=== PATIENT | male | born 1945 | race Caucasian/White ===

== ENCOUNTER 2018-03-12 21:37 | Emergency (ER) | payer MEDICARE, MEDICAID ==
[~2018-03-12] VITALS: Ht 185.4 cm; Wt 93.0 kg
[~2018-03-12 21:37] MED LIST: ASPI-84; AZIT250T PO; CLOP75TA; CLOP75TA28; DICL100G18; ENAL10TA; ISM60TCR; METO-387; MTP100TCR; RANO500T3; SIMV80TA3
--- OUTSIDE RECORDS SUMMARY | 2018-03-12 21:43 | XMS REPORT ---
Author Author REA Hanna [facility] Address Unknown Care Team Providers Care Logistics Assistant Name Role Phone REA Hanna Unavailable PROBLEMS Unknown Problems ALLERGIES Substance Reaction Event Type Date Status Iodine Unknown Non Drug Allergy Oct, Active SOCIAL HISTORY Never Assessed PLAN OF CARE Activity Details Follow Up prn Reason:as needed VITAL SIGNS Blood pressure systolic 177 mmHg 2016-11-22 Blood pressure diastolic 83 mmHg 2016-11-22 MEDICATIONS Medication Instructions Dosage Frequency Start Date End Date Duration Status Isosorbide Dinitrate 40 MG Orally Twice a day 1 tablet 12h Active Clopidogrel Bisulfate 75 MG Orally Once a day 1 tablet 24h Active Metoprolol Succinate Active Ranexa 500 MG Orally Twice a day 1 tablet 12h Active RESULTS No Results PROCEDURES Procedure Date Ordered Result Body Site LTD ORAL EVALUATION - PROBLEM FOCUS Nov 22, 2016 PANORAMIC FILM SEE ALSO CODE 47696 Nov 22, 2016 IMMUNIZATIONS No Known Immunizations MEDICAL (GENERAL) HISTORY Type Description Date Medical History pt is takin exalapril 10 mg 1 daily Medical History high blood pressure Medical History heart attack 2010 Medical History stroke Medical History blood thinners Medical History back trouble Surgical History heart attack 2010 Hospitalization History heart attack 2010
--- OUTSIDE RECORDS SUMMARY | 2018-03-12 21:43 | XMS REPORT | Continuity of Care Document ---
Author Author [facility] Organization [facility] Address Unknown Phone Unavailable Allergies Active Description Code Type Severity Reaction Onset Reported/Identified Relationship to Patient Clinical Status Yes Iodinated Contrast Media - IV Dye [id number] Drug Allergy Unknown N/A 01/20 Yes Iodinated Contrast Media - Oral and [id number] Drug Allergy Unknown N/A Medications There is no data. Problems Date Dx Coded Attending Type Code Diagnosis Diagnosed By 05/05/2011 Ot 327.23 OBSTRUCTIVE SLEEP APNEA (ADULT) (PEDIATR 05/05/2011 Ot 327.51 PERIODIC LIMB MOVEMENT DISORDER 05/30/2011 Ot 327.23 OBSTRUCTIVE SLEEP APNEA (ADULT) (PEDIATR 05/30/2011 Ot 327.51 PERIODIC LIMB MOVEMENT DISORDER 12/03/2012 Ot 844.1 SPRAIN MEDIAL COLLAT LIG 12/03/2012 Ot E000.8 OTHER EXTERNAL CAUSE STATUS 12/03/2012 Ot E849.[address] NEC 12/03/2012 Ot E885.9 FALL FROM SLIPPING, TRIPPING, OR STUMBLI 12/03/2012 Ot V57.1 PHYSICAL THERAPY NEC 09/29/2016 CANDY ROMEO MD Ot F17.210 NICOTINE DEPENDENCE, CIGARETTES, UNCOMPL 09/29/2016 CANDY ROMEO MD Ot I10 ESSENTIAL (PRIMARY) HYPERTENSION 09/29/2016 CANDY ROMEO MD Ot J20.9 ACUTE BRONCHITIS, UNSPECIFIED 09/29/2016 CANDY ROMEO MD Ot R05 COUGH 09/29/2016 CANDY ROMEO MD Ot Z79.82 COPPER PLATER (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 09/29/2016 CANDY ROMEO MD Ot Z79.899 OTHER COPPER PLATER (CURRENT) DRUG THERAPY 10/02/2016 CANDY ROMEO MD Ot F17.210 NICOTINE DEPENDENCE, CIGARETTES, UNCOMPL 10/02/2016 CANDY ROMEO MD Ot I10 ESSENTIAL (PRIMARY) HYPERTENSION 10/02/2016 CANDY ROMEO MD Ot J20.9 ACUTE BRONCHITIS, UNSPECIFIED 10/02/2016 CANDY ROMEO MD Ot R05 COUGH 10/02/2016 CANDY ROMEO MD, Ot 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 Results Test Result Range Complete blood count (CBC) with automated white blood cell (WBC) differential - 09/29/16 12:05 Blood leukocytes automated count (number/volume) 3.9 10*3/uL 4.3-11.0 Blood erythrocytes automated count (number/volume) 4.22 10*6/uL 4.35-5.85 Venous blood hemoglobin measurement (mass/volume) 13.4 g/dL 13.3-17.7 Blood hematocrit (volume fraction) 40 % 40-54 Automated erythrocyte mean corpuscular volume 94 [foz_us] 80-99 Automated erythrocyte mean corpuscular hemoglobin (mass per erythrocyte) 32 pg 25-34 Automated erythrocyte mean corpuscular hemoglobin concentration measurement ( mass/volume) 34 g/dL 32-36 Automated erythrocyte distribution width ratio 13.6 % 10.0-14.5 Automated blood platelet count (count/volume) 195 10*3/uL 130-400 Automated blood platelet mean volume measurement 10.1 [foz_us] 7.4-10.4 Automated blood neutrophils/100 leukocytes 51 % 42-75 Automated blood lymphocytes/100 leukocytes 33 % 12-44 Blood monocytes/100 leukocytes 14 % 0-12 Automated blood eosinophils/100 leukocytes 2 % 0-10 Automated blood basophils/100 leukocytes 0 % 0-10 Blood neutrophils automated count (number/volume) 2.0 10*3 1.8-7.8 Blood lymphocytes automated count (number/volume) 1.3 10*3 1.0-4.0 Blood monocytes automated count (number/volume) 0.5 10*3 0.0-1.0 Automated eosinophil count 0.1 10*3/uL 0.0-0.3 Automated blood basophil count (count/volume) 0.0 10*3/uL 0.0-0.1 Complete urinalysis with reflex to culture - 09/29/16 12:05 Urine color determination YELLOW NRG Urine clarity determination CLEAR NRG Urine pH measurement by test strip 7 5-9 Specific gravity of urine by test strip 1.005 1.016- 1.022 Urine protein assay by test strip, semi-quantitative NEGATIVE NEGATIVE Urine glucose detection by automated test strip NEGATIVE NEGATIVE Erythrocytes detection in urine sediment by light microscopy NEGATIVE NEGATIVE Urine ketones detection by automated test strip NEGATIVE NEGATIVE Urine nitrite detection by test strip NEGATIVE NEGATIVE Urine total bilirubin detection by test strip NEGATIVE NEGATIVE Urine urobilinogen measurement by automated test strip (mass/volume) NORMAL NORMAL Urine leukocyte esterase detection by dipstick NEGATIVE NEGATIVE Automated urine sediment erythrocyte count by microscopy (number/high power field) NONE NRG Automated urine sediment leukocyte count by microscopy (number/high power field ) NONE NRG Bacteria detection in urine sediment by light microscopy NEGATIVE NRG Squamous epithelial cells detection in urine sediment by light microscopy RARE NRG Crystals detection in urine sediment by light microscopy NONE NRG Casts detection in urine sediment by light microscopy NONE NRG Mucus detection in urine sediment by light microscopy NEGATIVE NRG Complete urinalysis with reflex to culture NO NRG Comprehensive metabolic panel - 09/29/16 12:05 Serum or plasma sodium measurement (moles/volume) 137 mmol/L 135-145 Serum or plasma potassium measurement (moles/volume) 4.2 mmol/L 3.6-5.0 Serum or plasma chloride measurement (moles/volume) 107 mmol/L 98-107 Carbon dioxide 20 mmol/L 21-32 Serum or plasma anion gap determination (moles/volume) 10 mmol/L 5-14 Serum or plasma urea nitrogen measurement (mass/volume) 12 mg/dL 7-18 Serum or plasma creatinine measurement (mass/volume) 1.14 mg/dL 0.60-1.30 Serum or plasma urea nitrogen/creatinine mass ratio 11 NRG Serum or plasma creatinine measurement with calculation of estimated glomerular filtration rate > NRG Serum or plasma glucose measurement (mass/volume) 88 mg/dL 70-105 Serum or plasma calcium measurement (mass/volume) 8.7 mg/dL 8.5-10.1 Serum or plasma total bilirubin measurement (mass/volume) 0.5 mg/dL 0.1-1.0 Serum or plasma alkaline phosphatase measurement (enzymatic activity/volume) 86 U/L 40-136 Serum or plasma aspartate aminotransferase measurement (enzymatic activity/ volume) 13 U/L 5-34 Serum or plasma alanine aminotransferase measurement (enzymatic activity/volume ) 11 U/L 0-55 Serum or plasma protein measurement (mass/volume) 6.6 g/dL 6.4-8.2 Serum or plasma albumin measurement (mass/volume) 3.8 g/dL 3.2-4.5 Encounters ACCT No. Visit Date/Time Discharge Status Pt. Type Provider Facility Loc./Unit Complaint [id number] 09/29/2016 11:43:00 09/29/2016 13:17:00 DIS Emergency AGUEDA COPPOLA, CANDY Lopez [facility] ER SOA/COUGH/L LEG PAIN/BACK PAIN [id number] 05/31/2013 12:06:00 05/31/2013 23:59:59 CLS Outpatient [id number] 11/24/2012 09:47:00 Document Registration [id number] 05/29/2011 20:51:00 Document Registration [id number] 05/04/2011 21:00:00 Document Registration
[2018-03-12] MEDS ORDERED: ATOR40TA70 (22:15)
--- NOTE | 2018-03-12 23:21 | ED Lower Extremity ---
General Chief Complaint: Laceration Stated Complaint: FINGER LACERATION FROM RAZOR BLADE,BLEEDING X4 HRS Nursing Triage Note: PT CUT TIP OF THE LEFT INDEX FINGER WITH BOX KNIFE AT 1800. PT IS ON PLAVIX AND WOULD NOT QUIT BLEEDING. PT HAS HAD A PRESSURE DRESSING ON AND BLEEDING CONTROLLED Nursing Sepsis Screen: No Definite Risk Source: patient Exam Limitations: no limitations History of Present Illness Date Seen by Provider: Mar 12, 2018 Time Seen by Provider: 22:45 Initial Comments Patient presents with complaints of uncontrolled bleeding from a laceration on the tip of his left index finger that occurred several hours prior. The injury was caused by a box knife or a razor. Patient takes aspirin and Plavix. There is no active bleeding at the time of my assessment. Patient states the laceration was flapped open a bit initially. He did clean it at home. Allergies and Home Medications Allergies Coded Allergies: IV Dye, Iodine Containing (Verified Allergy, Unknown, 01/20/09) Patient Home Medication List Home Medication List Reviewed: Yes Constitutional: no symptoms reported Cardiovascular: no symptoms reported Skin: see HPI Past Ntpssdy-Vhyjph-Iccytn Hx Patient Social History Alcohol Use: Denies Use Recreational Drug Use: No Smoking Status: Current Everyday Smoker Type Used: Cigarettes Recent Foreign Travel: No Contact w/Someone Who Travel: No Recent Infectious Disease Expo: No Recent Hopitalizations: No Immunizations Up To Date Tetanus Booster (TDap): More than 5yrs Seasonal Allergies Seasonal Allergies: No Past Medical History Surgeries: Yes (HEMORRHOIDECTOMY) Respiratory: No Cardiac: Yes (5 WAY BYPASS, STENTS, BALLOONS.) Heart Attack, Hypertension Neurological: Yes TIA Reproductive Disorders: No Genitourinary: No Gastrointestinal: No Musculoskeletal: Yes Arthritis Endocrine: No HEENT: No Cancer: No Psychosocial: No Integumentary: No (SCATTERED BRUISING/ON PLAVIX) Blood Disorders: No Family Medical History Reviewed and Corrections made Physical Exam Vital Signs Vital Signs - First Documented 03/12/18 21:45 Temp 97.2 Pulse 60 Resp 20 B/P (MAP) 183/84 (117) Pulse Ox 98 O2 Delivery Room Air Capillary Refill : Less Than 3 Seconds General Appearance: WD/WN, no apparent distress 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, no motor/sensory deficits, alert, normal mood/affect, oriented x 3 Skin: normal color, warm/dry, other (Subcentimeter laceration on the tip of the left index finger that is now closed and scabbed with no active bleeding.) Progress/Results/Core Measures Results/Orders My Orders Orders - JACQUELINE SCOTT MD Dipht,Victorino(Acell),Tet Adult (Boostrix (03/12/18 23:30) Dipht,Pertuss(Acell),Tet Adult (Boostrix (03/12/18 23:28) Vital Signs/I&O 03/12/18 03/12/18 03/12/18 21:45 23:32 23:35 Temp 97.2 97.2 97.2 Pulse 60 54 Resp 20 20 B/P (MAP) 183/84 (117) 160/77 (117) Pulse Ox 98 98 O2 Delivery Room Air Blood Pressure Mean: 117 Progress Progress Note : Progress Note Patient was very concerned that the wound might break open and bleed again. For this reason it was glued and a finger guard was applied. See discharge instructions. Departure Impression Primary Impression: Finger laceration Qualified Codes: S61.311A - Laceration without foreign body of left index finger with damage to nail, initial encounter Disposition: HOME, SELF-CARE Condition: Improved Departure-Patient Inst. Decision time for Depature: 23:05 Referrals: SELFBROOKS MD (PCP/Family) Primary Care Physician Patient Instructions: Laceration Repair With Glue (DC) Add. Discharge Instructions: Monitor your wound for signs of infection such as increasing redness, swelling, increasing pain, fever, or puslike drainage. Return to care promptly if you notice these symptoms. You may protect the tip of your finger with a Band-Aid to prevent the glue from snagging. Additionally you may use the shield for the next couple of days while the wound is healing. Allow the glue to slough off naturally. Do not attempt to peel the glue off as this may reopen your wound. Return to care if you have any other problems or concerns. All discharge instructions reviewed with patient and/or family. Voiced understanding. JACQUELINE SCOTT MD Mar 12, 2018 23:21
[2018-03-12] MEDS ORDERED: TETANUS,DIPTH,PERTUSS P/F (BOOSTRIX) 0.5 ML VIAL IM ONE ×2 (23:28→23:30)
[2018-03-12 23:35] VITALS: BP 160/77
== END 2018-03-12 23:35 | disposition home or self-care (01) ==
LOC: EDUNIT# 21:37 → ER 21:38
DX: S61.211A Laceration without foreign body of left index finger without damage to nail, initial encounter (principal); I10 Essential (primary) hypertension; I25.2 Old myocardial infarction; F17.210 Nicotine dependence, cigarettes, uncomplicated; Z79.02 Long term (current) use of antithrombotics/antiplatelets; Z86.73 Personal history of transient ischemic attack (TIA), and cerebral infarction without residual deficits; Z91.041 Radiographic dye allergy status; W26.8XXA Contact with other sharp object(s), not elsewhere classified, initial encounter
CPT/HCPCS: 12001; 29130; 90471; 90715

== ENCOUNTER 2018-04-18 08:50 | Observation (INO) | payer MEDICARE, MEDICAID ==
[~2018-04-18] VITALS: Ht 182.9 cm; Wt 81.6 kg
[~2018-04-18 08:50] MED LIST changes: +ATOR40TA70; -METO-387; +METO-387 PO
[2018-04-18 09:10] LABS: BASOPHILS % (AUTO) 0 % (0-10); EOSINOPHILS # (AUTO) 0.2 10^3/uL (0.0-0.3); EOSINOPHILS % (AUTO) 3 % (0-10); HEMATOCRIT 37 % (40-54); LYMPHOCYTES % (AUTO) 36 % (12-44); MEAN CORPUSCULAR HEMOGLOBIN 33 PG (25-34); MEAN CORPUSCULAR HGB CONC 35 G/DL (32-36); MEAN CORPUSCULAR VOLUME 95 FL (80-99); MEAN PLATELET VOLUME 11.2 FL (7.4-10.4); MONOCYTES # (AUTO) 0.5 X 10^3 (0.0-1.0); MONOCYTES % (AUTO) 9 % (0-12); NEUTROPHILS # (AUTO) 2.9 X 10^3 (1.8-7.8); NEUTROPHILS % (AUTO) 53 % (42-75); PLATELET COUNT 151 10^3/uL (130-400); RED BLOOD COUNT 3.94 10^6/uL (4.35-5.85); RED CELL DISTRIBUTION WIDTH 13.8 % (10.0-14.5); WHITE BLOOD COUNT 5.5 10^3/uL (4.3-11.0)
[2018-04-18] MEDS ORDERED: ASPIRIN 81 MG CHEW (CHILDREN'S ASA) PO ONE (09:15)
[2018-04-18 09:20] LABS: INR 1.1 (0.8-1.4); PROTHROMBIN TIME PATIENT 14.2 SEC (12.2-14.7)
[2018-04-18 09:27] LABS: ALANINE AMINOTRANSFERASE 8 U/L (0-55); ALBUMIN 3.9 GM/DL (3.2-4.5); ALKALINE PHOSPHATASE 74 U/L (40-136); BILIRUBIN,TOTAL 0.5 MG/DL (0.1-1.0); BUN/CREATININE RATIO 11; CALCIUM 8.7 MG/DL (8.5-10.1); CARBON DIOXIDE 22 MMOL/L (21-32); CHLORIDE 109 MMOL/L (98-107); CREATININE SERUM 1.15 MG/DL (0.60-1.30); GFR ESTIMATED > 60; GLUCOSE 109 MG/DL (70-105); MAGNESIUM 2.1 MG/DL (1.8-2.4); POTASSIUM 3.4 MMOL/L (3.6-5.0); SODIUM 138 MMOL/L (135-145); TOTAL PROTEIN 6.6 GM/DL (6.4-8.2)
--- NOTE | 2018-04-18 09:30 | Diagnostic Imaging Report ---
INDICATION: Difficulty breathing. COMPARISON: 09/29/2016. FINDINGS: Two views of the chest are obtained. Heart size is normal. The pulmonary vessels appear unremarkable. There are postoperative changes in the mediastinum. There is no pneumothorax, mediastinal widening or pleural fluid. There are findings of COPD. The lungs are otherwise clear. There are mild degenerative changes in the spine. IMPRESSION: No acute cardiopulmonary abnormality is seen. No interval change from the prior study. Dictated by: Dictated on workstation # [id number]
[2018-04-18 09:33] LABS: MYOGLOBIN SERUM 42.4 NG/ML (10.0-92.0)
[2018-04-18] MEDS ORDERED: RT-ALBUTEROL/IPRATROPIUM 3 ML (DUONEB) VIAL INH ONE (09:45)
--- NOTE | 2018-04-18 09:52 | ED Chest Pain ---
General Chief Complaint: Chest Pain Stated Complaint: SOA Nursing Triage Note: PT CO OF SOA, STATES HAD CHEST PAIN @ 0800 8/ HAS TAKEN NITRO SL AND PAIN GONE, PT STATES STILL REMAINS SOA. PT DENIES C/P AT THIS X Nursing Sepsis Screen: No Definite Risk Source: patient Exam Limitations: no limitations History of Present Illness Date Seen by Provider: Apr 18, 2018 Time Seen by Provider: 08:52 Initial Comments This 72-year-old gentleman presents to the emergency room by private vehicle with primary complaint of shortness of air "real bad". Symptoms started this morning around 06:30 when he developed a sharp chest pain. This resolved with nitroglycerin but shortness of air persisted. Patient has extensive cardiac history with CABG and numerous stents. 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 Mccormick and he has received his cardiac care at [facility] in [place]. His primary care provider is Dr. De Guzman in [place]. His significant other indicates he was in distress this morning. Allergies and Home Medications Allergies Coded Allergies: Iodinated Contrast- Oral and IV Dye (Verified Allergy, Unknown, 01/20/09) Home Medications Aspirin 81 Mg Tablet.dr, 81 MG PO DAILY, (Reported) Clopidogrel Bisulfate 75 Mg Tablet, 75 MG PO DAILY, (Reported) Docusate Sodium 100 Mg Capsule, 100 MG PO DAILY, (Reported) Metoprolol Succinate 25 Mg Tab.er.24h, 25 MG PO DAILY, (Reported) Patient Home Medication List Home Medication List Reviewed: Yes Review of Systems Constitutional: no symptoms reported EENTM: No Symptoms Reported Respiratory: See HPI Cardiovascular: See HPI Gastrointestinal: No Symptoms Reported Genitourinary: No Symptoms Reported Musculoskeletal: no symptoms reported Skin: no symptoms reported Psychiatric/Neurological: No Symptoms Reported Endocrine: No Symptoms Reported Past Morprbv-Pxxygq-Rmrcft Hx Past Med/Social Hx: Reviewed and Corrections made Patient Social History Alcohol Use: Denies Use Recreational Drug Use: No Smoking Status: Current Everyday Smoker Type Used: Cigarettes Recent Foreign Travel: No Contact w/Someone Who Travel: No Recent Infectious Disease Expo: No Recent Hopitalizations: No Physical Abuse: No Sexual Abuse: No Immunizations Up To Date Tetanus Booster (TDap): More than 5yrs Seasonal Allergies Seasonal Allergies: No Past Medical History Surgeries: Yes (HEMORRHOIDECTOMY) CABG, Coronary Stent Respiratory: No Cardiac: Yes (5 WAY BYPASS, STENTS, BALLOONS.) Coronary Artery Disease, Heart Attack, Hypertension Neurological: Yes TIA Reproductive Disorders: No Genitourinary: No Gastrointestinal: No Musculoskeletal: Yes Arthritis Endocrine: No HEENT: No Cancer: No Psychosocial: No Nursing Suicide Risk Score: 0 Integumentary: No (SCATTERED BRUISING/ON PLAVIX) Blood Disorders: No Physical Exam Vital Signs Vital Signs - First Documented 04/18/18 04/18/18 08:55 10:20 Temp 95.4 Pulse 52 Resp 18 B/P (MAP) 188/77 (114) Pulse Ox 97 O2 Delivery Room Air O2 Flow Rate 0 Capillary Refill : Less Than 3 Seconds Height, Weight, BMI Height: 6'0" Weight: 180lbs. oz. 81.487791uf; BMI Method:Stated General Appearance: WD/WN, Mild Distress HEENT: PERRL/EOMI, Normal ENT Inspection, Pharynx Normal Neck: Normal Inspection Respiratory: Lungs Clear, Normal Breath Sounds, No Accessory Muscle Use, No Respiratory Distress Cardiovascular: Regular Rate, Rhythm, No Edema, No Murmur, Normal Peripheral Pulses Gastrointestinal: Normal Bowel Sounds, Non Tender, Soft Extremity: Normal Capillary Refill, Normal Inspection, No Calf Tenderness, No Pedal Edema, Calf Tenderness (Right), Other (Negative Artis) Neurologic/Psychiatric: Alert, Oriented x3, No Motor/Sensory Deficits, Normal Mood/Affect, 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 Norm as Tested Skin: Normal Color, Warm/Dry Progress/Results/Core Measures Results/Orders Lab Results Laboratory Tests Test 04/18/18 09:00 04/18/18 09:35 Range/Units White Blood Count 5.5 4.3-11.0 10^3/uL Red Blood Count 3.94 L 4.35-5.85 10^6/uL Hemoglobin 13.0 L 13.3-17.7 G/DL Hematocrit 37 L 40-54 % Mean Corpuscular Volume 95 80-99 FL Mean Corpuscular Hemoglobin 33 25-34 PG Mean Corpuscular Hemoglobin Concent 35 32-36 G/DL Red Cell Distribution Width 13.8 10.0-14.5 % Platelet Count 151 130-400 10^3/uL Mean Platelet Volume 11.2 H 7.4-10.4 FL Neutrophils (%) (Auto) 53 42-75 % Lymphocytes (%) (Auto) 36 12-44 % Monocytes (%) (Auto) 9 0-12 % Eosinophils (%) (Auto) 3 0-10 % Basophils (%) (Auto) 0 0-10 % Neutrophils # (Auto) 2.9 1.8-7.8 X 10^3 Lymphocytes # (Auto) 2.0 1.0-4.0 X 10^3 Monocytes # (Auto) 0.5 0.0-1.0 X 10^3 Eosinophils # (Auto) 0.2 0.0-0.3 10^3/uL Basophils # (Auto) 0.0 0.0-0.1 10^3/uL Prothrombin Time 14.2 12.2-14.7 SEC INR Comment 1.1 0.8-1.4 Activated Partial Thromboplast Time 29 24-35 SEC Sodium Level 138 135-145 MMOL/L Potassium Level 3.4 L 3.6-5.0 MMOL/L Chloride Level 109 H 98-107 MMOL/L Carbon Dioxide Level 22 21-32 MMOL/L Anion Gap 7 5-14 MMOL/L Blood Urea Nitrogen 13 7-18 MG/DL Creatinine 1.15 0.60-1.30 MG/DL Estimat Glomerular Filtration Rate > 60 BUN/Creatinine Ratio 11 Glucose Level 109 H 70-105 MG/DL Calcium Level 8.7 8.5-10.1 MG/DL Magnesium Level 2.1 1.8-2.4 MG/DL Total Bilirubin 0.5 0.1-1.0 MG/DL Aspartate Amino Transf (AST/SGOT) 14 5-34 U/L Alanine Aminotransferase (ALT/SGPT) 8 0-55 U/L Alkaline Phosphatase 74 40-136 U/L Myoglobin 42.4 10.0-92.0 NG/ML Troponin I < 0.30 <0.30 NG/ML Total Protein 6.6 6.4-8.2 GM/DL Albumin 3.9 3.2-4.5 GM/DL D-Dimer 0.53 H 0.00-0.49 UG/ML B-Type Natriuretic Peptide 92.3 <100.0 PG/ML My Orders Orders - JACQUELINE SCOTT MD Cbc With Automated Diff (04/18/18 09:02) Magnesium (04/18/18 09:02) Ekg Tracing (04/18/18 09:02) Cardiac Profile 1 (7/20/18 09:02) Comprehensive Metabolic Panel (04/18/18 09:02) Myoglobin Serum (04/18/18 09:02) Protime With Inr (04/18/18 09:02) Partial Thromboplastin Time (04/18/18 09:02) O2 (04/18/18 09:02) Monitor-Rhythm Ecg Trace Only (04/18/18 09:02) Aspirin Chewable Tablet (Baby Aspirin Ch (04/18/18 09:15) Saline Lock/Iv-Start (04/18/18 09:02) Chest Pa/Lat (2 View) (04/18/18 09:02) Albuterol/Ipra Inhalation Soln (Duoneb I (04/18/18 09:45) BNP (04/18/18 09:58) Fibrin Degradation Products (04/18/18 09:58) Enoxaparin Injection (Lovenox Injection) (04/18/18 11:30) Medications Given in ED Vital Signs/I&O 04/18/18 04/18/18 04/18/18 08:55 08:55 10:20 Temp 95.4 Pulse 52 Resp 18 B/P (MAP) 188/77 (114) Pulse Ox 97 99 O2 Delivery Room Air Room Air O2 Flow Rate 0 Blood Pressure Mean: 114 Progress Progress Note : Time: 11:12 Progress Note Workup has been unremarkable. Patient was treated with a DuoNeb treatment for shortness of air. Patient was offered transferred to [facility] for continuity of care. He elected to stay here. Dr. Hdz was consulted and requested a d-dimer be performed. D-dimer was minimally elevated. VQ scan was ordered for later today. In the meantime Lovenox will be administered. Chest pain resolved prior to arriving in the ER. Initial ECG Impression Date: Apr 18, 2018 Initial ECG Impression Time: 08:59 Initial ECG Rate: 58 Initial ECG Rhythm: Normal Sinus Comment Normal sinus rhythm with no ST elevation or depression. No abnormal intervals or axis deviation. Borderline prolonged QT interval. Diagnostic Imaging Diagonstic Imaging: Xray Plain Films/CT/US/NM/MRI: chest Comments Chest x-ray viewed by me and report reviewed. See report below: NAME: KEMAR CAMPA Santino [facility] REC#: [id number] PT STATUS: REG ER : 1945 PHYSICIAN: JACQUELINE SCOTT MD ADMIT DATE: 04/18/18/ER Signed Date of Exam: 04/18/18 CHEST PA/LAT (2 VIEW) INDICATION: Difficulty breathing. COMPARISON: 09/29/2016. FINDINGS: Two views of the chest are obtained. Heart size is normal. The pulmonary vessels appear unremarkable. There are postoperative changes in the mediastinum. There is no pneumothorax, mediastinal widening or pleural fluid. There are findings of COPD. The lungs are otherwise clear. There are mild degenerative changes in the spine. IMPRESSION: No acute cardiopulmonary abnormality is seen. No interval change from the prior study. Dictated by: Dictated on workstation # [id number] Dict: 04/18/18922 Trans: 04/18/1850 Interpreted by: SHUKRI SEXTON DO Electronically signed by: SHUKRI SEXTON DO 04/18/18 0950 Departure Communication (Admissions) Dr. Manning Time/Spoke to Consulting Phy: 09:55 Dr. Hdz Impression Primary Impression: Chest pain Qualified Codes: R07.9 - Chest pain, unspecified Additional Impressions: Dyspnea Qualified Codes: R06.00 - Dyspnea, unspecified Coronary artery disease Qualified Codes: I25.10 - Atherosclerotic heart disease of [place] coronary artery without angina pectoris Disposition: ADMITTED INPATIENT Condition: Improved Admissions Decision to Admit Reason: Admit from ER (Trauma) Decision to Admit/Date: Apr 18, 2018 Time/Decision to Admit Time: 09:55 Departure-Patient Inst. Referrals: BROOKS DE GUZMAN MD (PCP/Family) Primary Care Physician JACQUELINE SCOTT MD Apr 18, 2018 09:51
[2018-04-18] MEDS ORDERED: ENOXAPARIN 80 MG/0.8 ML (LOVENOX) SYR SC ONE (11:30)
--- OUTSIDE RECORDS SUMMARY | 2018-04-18 11:49 | XMS REPORT | Continuity of Care Document ---
Author Author [facility] Organization [facility] Address Unknown Phone Unavailable Allergies Active Description Code Type Severity Reaction Onset Reported/Identified Relationship to Patient Clinical Status Yes Iodinated Contrast Media - IV Dye [id number] Drug Allergy Unknown N/A 01/20 Yes Iodinated Contrast Media - Oral and [id number] Drug Allergy Unknown N/A Yes Iodinated Contrast- Oral and IV Dye [id number] Drug Allergy Unknown N/A Medications There is [...] COUGH 09/29/2016 CANDY ROMEO MD Ot Z79.82 SKILLED NURSING (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 09/29/2016 CANDY ROMEO MD Ot Z79.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 10/02/2016 CANDY ROMEO MD Ot F17.210 NICOTINE DEPENDENCE, CIGARETTES, UNCOMPL 10/02/2016 CANDY ROMEO MD Ot I10 ESSENTIAL (PRIMARY) HYPERTENSION 10/02/2016 CANDY ROMEO MD Ot J20.9 ACUTE BRONCHITIS, UNSPECIFIED 10/02/2016 CANDY ROMEO MD Ot R05 COUGH 10/02/2016 CANDY ROMEO MD Ot Z79.82 SKILLED NURSING (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 10/02/2016 CANDY ROMEO MD Ot Z79.899 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 10/05/2016 CANDY ROMEO MD Ot F17.210 NICOTINE DEPENDENCE, CIGARETTES, UNCOMPL 10/05/2016 CANDY ROMEO MD Ot I10 ESSENTIAL (PRIMARY) HYPERTENSION 10/05/2016 CANDY ROMEO MD Ot J20.9 ACUTE BRONCHITIS, UNSPECIFIED 10/05/2016 CANDY ROMEO MD Ot R05 COUGH 10/05/2016 CANDY ROMEO MD Ot 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.82 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 (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 10/05/2016 CANDY ROMEO MD Ot Z79.899 OTHER SKILLED NURSING (CURRENT) DRUG THERAPY 03/12/2018 JACQUELINE SCOTT MD, Ot F17.210 NICOTINE DEPENDENCE, CIGARETTES, UNCOMPL 03/12/2018 JACQUELINE SCOTT MD, Ot I10 ESSENTIAL (PRIMARY) HYPERTENSION 03/12/2018 JACQUELINE SCOTT MD, Ot I25.2 OLD MYOCARDIAL INFARCTION 03/12/2018 JACQUELINE SCOTT MD Ot S61.211A LACERATION W/O FB OF L IDX FNGR W/O JYOTHI 03/12/2018 JACQUELINE SCOTT MD, Ot W26.8XXA CONTACT WITH OTHER SHARP OBJECT(S), NEC, 03/12/2018 JACQUELINE SCOTT MD Ot Z79.02 SKILLED NURSING (CURRENT) USE OF ANTITHROMBOTI 03/12/2018 JACQUELINE SCOTT MD Ot Z86.73 PRSNL HX OF TIA (TIA), AND CEREB INFRC W 03/12/2018 JACQUELINE SCOTT MD, Ot Z91.041 RADIOGRAPHIC DYE ALLERGY STATUS 03/14/2018 JACQUELINE SCOTT MD Ot F17.210 NICOTINE DEPENDENCE, CIGARETTES, UNCOMPL 03/14/2018 JACQUELINE SCOTT MD, Ot I10 ESSENTIAL (PRIMARY) HYPERTENSION 03/14/2018 JACQUELINE SCOTT MD, Ot I25.2 OLD MYOCARDIAL INFARCTION 03/14/2018 JACQUELINE SCOTT MD, Ot S61.211A LACERATION W/O FB OF L IDX FNGR W/O JYOTHI 03/14/2018 JACQUELINE SCOTT MD, Ot W26.8XXA CONTACT WITH OTHER SHARP OBJECT(S), NEC, 03/14/2018 JACQUELINE SCOTT MD, Ot Z79.02 CASINO ACCOUNTANT (CURRENT) USE OF ANTITHROMBOTI 03/14/2018 JACQUELINE SCOTT MD, Ot Z86.73 PRSNL HX OF TIA (TIA), AND CEREB INFRC W 03/14/2018 JACQUELINE SCOTT MD, Ot Z91.041 RADIOGRAPHIC DYE ALLERGY STATUS Procedures There is no data. Results Test [...] plasma albumin measurement (mass/volume) 3.8 g/dL 3.2-4.5 Complete blood count (CBC) with automated white blood cell (WBC) differential - 04/18/18 09:00 Blood leukocytes automated count (number/volume) 5.5 10*3/uL 4.3-11.0 Blood erythrocytes automated count (number/volume) 3.94 10*6/uL 4.35-5.85 Venous blood hemoglobin measurement (mass/volume) 13.0 g/dL 13.3-17.7 Blood hematocrit (volume fraction) 37 % 40-54 Automated erythrocyte mean corpuscular volume 95 [foz_us] 80-99 Automated erythrocyte mean corpuscular hemoglobin (mass per erythrocyte) 33 pg 25-34 Automated erythrocyte mean corpuscular hemoglobin concentration measurement ( mass/volume) 35 g/dL 32-36 Automated erythrocyte distribution width ratio 13.8 % 10.0-14.5 Automated blood platelet count (count/volume) 151 10*3/uL 130-400 Automated blood platelet mean volume measurement 11.2 [foz_us] 7.4-10.4 Automated blood neutrophils/100 leukocytes 53 % 42-75 Automated blood lymphocytes/100 leukocytes 36 % 12-44 Blood monocytes/100 leukocytes 9 % 0-12 Automated blood eosinophils/100 leukocytes 3 % 0-10 Automated blood basophils/100 leukocytes 0 % 0-10 Blood neutrophils automated count (number/volume) 2.9 10*3 1.8-7.8 Blood lymphocytes automated count (number/volume) 2.0 10*3 1.0-4.0 Blood monocytes automated count (number/volume) 0.5 10*3 0.0-1.0 Automated eosinophil count 0.2 10*3/uL 0.0-0.3 Automated blood basophil count (count/volume) 0.0 10*3/uL 0.0-0.1 PT panel in platelet poor plasma by coagulation assay - 04/18/18 09:00 Prothrombin time (PT) in platelet poor plasma by coagulation assay 14.2 s 12.2-14.7 INR in platelet poor plasma or blood by coagulation assay 1.1 0.8-1.4 Activated partial thromboplastin time (aPTT) in platelet poor plasma bycoagulation assay - 04/18/18 09:00 Activated partial thromboplastin time (aPTT) in platelet poor plasma bycoagulation assay 29 s 24-35 Comprehensive metabolic panel - 04/18/18 09:00 Serum or plasma sodium measurement (moles/volume) 138 mmol/L 135-145 Serum or plasma potassium measurement (moles/volume) 3.4 mmol/L 3.6-5.0 Serum or plasma chloride measurement (moles/volume) 109 mmol/L 98-107 Carbon dioxide 22 mmol/L 21-32 Serum or plasma anion gap determination (moles/volume) 7 mmol/L 5-14 Serum or plasma urea nitrogen measurement (mass/volume) 13 mg/dL 7-18 Serum or plasma creatinine measurement (mass/volume) 1.15 mg/dL 0.60-1.30 Serum or plasma urea nitrogen/creatinine mass ratio 11 NRG Serum or plasma creatinine measurement with calculation of estimated glomerular filtration rate > NRG Serum or plasma glucose measurement (mass/volume) 109 mg/dL 70-105 Serum or plasma calcium measurement (mass/volume) 8.7 mg/dL 8.5-10.1 Serum or plasma total bilirubin measurement (mass/volume) 0.5 mg/dL 0.1-1.0 Serum or plasma alkaline phosphatase measurement (enzymatic activity/volume) 74 U/L 40-136 Serum or plasma aspartate aminotransferase measurement (enzymatic activity/ volume) 14 U/L 5-34 Serum or plasma alanine aminotransferase measurement (enzymatic activity/volume ) 8 U/L 0-55 Serum or plasma protein measurement (mass/volume) 6.6 g/dL 6.4-8.2 Serum or plasma albumin measurement (mass/volume) 3.9 g/dL 3.2-4.5 Magnesium - 04/18/18 09:00 Magnesium 2.1 mg/dL 1.8-2.4 Serum or plasma troponin i.cardiac measurement (mass/volume) - 04/18/18 09:00 Serum or plasma troponin i.cardiac measurement (mass/volume) < ng/ mL <0.30 Myoglobin, serum - 04/18/18 09:00 Myoglobin, serum 42.4 ng/mL 10.0-92.0 Serum or plasma lithium measurement (moles/volume) - 04/18/18 09:35 BNP level 92.3 pg/mL <100.0 Fibrin D-dimer FEU measurement in platelet poor plasma (mass/volume) - 09:35 Fibrin D-dimer FEU measurement in platelet poor plasma (mass/volume) 0.53 ug/mL 0.00-0.49 Encounters ACCT No. Visit Date/Time Discharge Status Pt. Type Provider Facility Loc./Unit Complaint [id number] 03/12/2018 21:38:00 03/12/2018 23:35:00 DIS Emergency TYLER COPPOLA, JACQUELINE Morales [facility] ER FINGER LACERATION FROM RAZOR BLADE,BLEEDING X4 HRS [id number] 09/29/2016 11:43:00 09/29/2016 13:17:00 DIS Emergency AGUEDA COPPOLA, CANDY Lopez [facility] ER SOA/COUGH/L LEG PAIN/BACK PAIN [id number] 05/31/2013 12:06:00 05/31/2013 23:59:59 CLS Outpatient [id number] 04/18/2018 09:15:00 Document Registration [id number] 11/24/2012 09:47:00 Document Registration [id number] 05/29/2011 20:51:00 Document Registration [id number] 05/04/2011 21:00:00 Document Registration
[2018-04-18 12:00] VITALS: BP 169/75
[2018-04-18] MEDS ORDERED: CATHETER FLUSH 10 ML SYR IV PRN (12:30)
[2018-04-18] MEDS ORDERED: NITROGLYCERIN 0.4 MG SL TABS BTL 25'S SL PRN (12:30)
[2018-04-18] MEDS ORDERED: morphine INJ 4 MG/ML 1 ML (VIAL/SYRINGE) IV PRN (12:30)
[2018-04-18] MEDS ORDERED: CLOP75TA28 PO (13:04)
[2018-04-18] MEDS ORDERED: ASPI-983 PO (13:25)
[2018-04-18] MEDS ORDERED: DOCU-143 PO (13:25)
[2018-04-18 13:50] VITALS: BP 169/75
--- NOTE | 2018-04-18 13:50 | Diagnostic Imaging Report ---
PROCEDURE: US right lower extremity venous. TECHNIQUE: Multiple real-time grayscale images were obtained over the right lower extremity in various projections. Additional duplex Doppler and color Doppler images were also obtained. INDICATION: Right calf pain. FINDINGS: The right common femoral, superficial femoral, popliteal veins and tibial veins demonstrate normal response to compression, augmentation, and Valsalva. There are no right lower extremity fluid collections or masses. IMPRESSION: No evidence of deep vein thrombosis in the right lower extremity. Dictated by: Dictated on workstation # [id number]
[2018-04-18] MEDS ORDERED: CATHETER FLUSH 10 ML SYR IV SCH (14:00)
[2018-04-18] MEDS ORDERED: RT-ALBUTEROL/IPRATROPIUM 3 ML (DUONEB) VIAL INH PRN (14:00)
--- NOTE | 2018-04-18 14:22 | History & Physical-Hospitalist ---
History of Present Illness HPI/Chief Complaint This is a 72-year-old white male from [place] who presents with increased shortness of breath this morning. He had slept well overnight laying down flat in his bed orthopnea or PND. This morning he just couldn't catch his breath but denied having any chest pain. He has long-standing history of coronary artery disease with multiple stents angioplasty and bypass. Usually he has chest pain with his angina and he did not have that this morning. Is given a breathing treatment in the emergency room and he looks like he is breathing much more easily now and denies having any shortness of breath. Chest x-ray shows COPD. He did have a positive d-dimer low positive venous Doppler of his legs was negative and the VQ scan is being ordered rather than a CT because of his history of contrast allergies. He continues to smoke 8-10 cigarettes a day and has for years and is actually down in number from before Source: patient Exam Limitations: no limitations Date Seen 04/18/18 Time Seen by Provider: 14:00 Attending Physician Lindsey Oh MD PCP SelfNain MD Referring Physician Date of Admission Apr 18, 2018 at 11:17 Home Medications & Allergies Home Medications Reviewed patient Home Medication Reconciliation performed by pharmacy medication reconciliations oven technician and/or nursing. Patients Allergies have been reviewed. Allergies Allergies Coded Allergies Iodinated Contrast- Oral and IV Dye (Verified Allergy, Unknown, 01/20/09) Past Endslrs-Jhmzib-Ussnjf Hx Past Med/Social Hx: Reviewed Nursing Past Med/Soc Hx Patient Social History Marrital Status: single, Employed/Student: part-time employed ([employer]) Alcohol Use: Denies Use Recreational Drug Use: Yes Smoking Status: Current Everyday Smoker Type Used: Cigarettes Physical Abuse Screen: No Sexual Abuse: No Recent Foreign Travel: No Contact w/other who traveled: No Recent Hopitalizations: No Recent Infectious Disease Expo: No Immunizations Up To Date Tetanus Booster (TDap): More than 5yrs Date of Pneumonia Vaccine: Apr 18, 2017 Seasonal Allergies Seasonal Allergies: No Past Medical History Surgeries: Angioplasty, Coronary Stent, Open Heart Surgery Cardiac: Coronary Artery Disease, Heart Attack, Hypertension Neurological: TIA Reproductive: No Genitourinary: Benign Prostatic Hyperpl Gastrointestinal: Gastroesophageal Reflux Musculoskeletal: Arthritis Psychosocial: Sleep Difficulties History of Blood Disorders: No Review of Systems Constitutional: see HPI EENTM: no symptoms reported Respiratory: dyspnea on exertion, short of breath Cardiovascular: no symptoms reported Gastrointestinal: no symptoms reported Genitourinary: frequency, hesitancy Musculoskeletal: no symptoms reported Skin: no symptoms reported Psychiatric/Neurological: No Symptoms Reported Physical Exam Physical Exam Vital Signs Vital Signs - First Documented 04/18/18 04/18/18 08:55 10:20 Temp 95.4 Pulse 52 Resp 18 B/P (MAP) 188/77 (114) Pulse Ox 97 O2 Delivery Room Air O2 Flow Rate 0 Capillary Refill : Less Than 3 Seconds Height, Weight, BMI Height: 6'0.00" Weight: 180lbs. 0.0oz. 81.346566ql; 24.4 BMI Method:Stated General Appearance: No Apparent Distress, WD/WN, Other (Walking up in the ICU without evidence of discomfort or shortness of air) HEENT: Other (Edentulous) Neck: Full Range of Motion, Normal Inspection, Non Tender, Supple Respiratory: Chest Non Tender, Lungs Clear, Normal Breath Sounds, No Accessory Muscle Use, No Respiratory Distress Cardiovascular: Regular Rate, Rhythm, No Gallop, Systolic Murmur Gastrointestinal: Normal Bowel Sounds, No Organomegaly, Non Tender, Soft Rectal: Deferred Back: Normal Inspection, No CVA Tenderness, No Vertebral Tenderness Extremity: Normal Capillary Refill, Normal Inspection, Normal Range of Motion, Non Tender, No Calf Tenderness Neurologic/Psychiatric: Alert, Oriented x3, No Motor/Sensory Deficits, Normal Mood/Affect, diet technician registered II-XII Norm as Tested Skin: Normal Color, Warm/Dry Results Results/Procedures Labs Laboratory Tests 04/18/18 09:00 Patient resulted labs reviewed. Assessment/Plan Admission Diagnosis 1. Shortness of breath without anginal equivalent however patient has multiple risk factors for this being cardiac 2. Evidence of COPD on chest x-ray and history is most consistent with exacerbation of COPD. We'll begin Advair and Spiriva and get bedside pulmonary function tests. 3. Tobaccoism we'll begin smoking cessation 4. Positive d-dimer with contrast allergy venous Doppler negative VQ scan pending Admission Status: Observation Assessment and Plan 1. Shortness of breath without anginal equivalent however patient has multiple risk factors for this being cardiac 2. Evidence of COPD on chest x-ray and history is most consistent with exacerbation of COPD. We'll begin Advair and Spiriva and get bedside pulmonary function tests. 3. Tobaccoism we'll begin smoking cessation Clinical Quality Measures DVT/VTE Risk/Contraindication: Risk Factor Score Per Nursin RFS Level Per Nursing on Admit: 3=High LINDSEY OH MD Apr 18, 2018 14:22
--- NOTE | 2018-04-18 16:11 | Diagnostic Imaging Report ---
INDICATION: Dyspnea. TECHNIQUE: Ventilation images were obtained after the administration of 44 mCi of technetium 99m DTPA. Perfusion images were obtained after the administration of 5.49 mCi of technetium 99m MAA. COMPARISON: Comparison made with chest x-ray from 04/18/2018. FINDINGS: Ventilation images demonstrate homogeneous uptake. There are no segmental or subsegmental ventilation defect. Perfusion images demonstrate homogeneous uptake throughout. There are no lobar segmental or subsegmental perfusion defects. IMPRESSION: Low probability for pulmonary embolism. Dictated by: Dictated on workstation # [id number]
[2018-04-18 16:16] VITALS: BP 170/85
--- NOTE | 2018-04-18 16:45 | Consultation-Cardiology ---
HPI-Cardiology Cardiology Consultation: Date of Consultation 04/18/18 Date of Admission Attending Physician Lindsey Manning MD Admitting Physician Nain De Guzman MD Consulting Physician Ricardo HDZ MD HPI: Time Seen by Provider: 13:00 Chief Complaint: Chest pain, shortness of breath This is a 72-year-old gentleman who has history of coronary disease. he is an active smoker. He also has history of COPD. He presents with shortness of breath. Denies orthopnea or PND. He denies any chest pain. He denies any syncope or near syncope. Review of Systems-Cardiology Review of Systems Constitutional: As described under HPI; No As described under HPI, No no symptoms reported, No chills, No fever, No lightheadedness Eyes: No As described under HPI, No no symptoms reported, No blindness, No blurred vision, No contact lenses, No drainage, No decreased acuity, No foreign body sensation, No pain, No vision change Ears/Nose/Throat: No As described under HPI, No no symptoms reported, No chronic hearing loss, No ear discharge, No ear pain, No nasal drainage, No ulcerations Respiratory: No no symptoms reported; As described under HPI; No As described under HPI, No cough, No orthopnea; shortness of breath; No SOB with excertion Cardiovascular: No no symptoms reported; As described under HPI; No As described under HPI, No chest pain, No edema, No irregular heart rate, No lightheadedness, No palpitations Gastrointestinal: No no symptoms reported, No As described under HPI, No abdomen distended, No abdominal pain, No blood streaked bowels, No constipation , No diarrhea, No nausea, No vomiting, No stool coloration changes Genitourinary: No As described under HPI, No burning, No dysuria, No discharge , No frequency, No flank pain, No hematuria, No urgency Skin: No rash, No skin related problems, No ulcerations Psychiatric/Neurological: No anxiety, No depression, No seizure, No focal weakness, No syncope Hematologic: No bleeding abnormalities CLP-Gozwha-Kvwksq Hx Patient Social History Marrital Status: single, Employed/Student: part-time employed ([employer]) Alcohol Use: Denies Use Recreational Drug Use: Yes Smoking Status: Current Everyday Smoker Type Used: Cigarettes Recent Foreign Travel: No Recent Infectious Disease Expo: No Hospitalization with Isolation: Denies Physical Abuse Screen: No Sexual Abuse: No Immunizations Up To Date Tetanus Booster (TDap): More than 5yrs Date of Pneumonia Vaccine: Apr 18, 2017 Past Medical History PMH As described under Assessment. Allergies and Home Medications Allergies Coded Allergies: Iodinated Contrast- Oral and IV Dye (Verified Allergy, Unknown, 01/20/09) Home Medications Aspirin 81 Mg Tablet.dr, 81 MG PO DAILY, (Reported) Clopidogrel Bisulfate 75 Mg Tablet, 75 MG PO DAILY, (Reported) Docusate Sodium 100 Mg Capsule, 100 MG PO DAILY, (Reported) Metoprolol Succinate 25 Mg Tab.er.24h, 25 MG PO DAILY, (Reported) Patient Home Medication List Home Medication List Reviewed: Yes Physical Exam-Cardiology Physical Exam Vital Signs/I&O 04/18/18 04/18/18 04/18/18 04/18/18 08:55 08:55 10:20 12:00 Temp 95.4 97.4 Pulse 52 57 Resp 18 17 B/P (MAP) 188/77 (114) 169/75 (106) Pulse Ox 97 99 100 O2 Delivery Room Air Room Air Room Air O2 Flow Rate 0 04/18/18 04/18/18 04/18/18 04/18/18 12:23 13:16 13:50 13:50 Pulse 53 58 Pulse Ox 98 98 O2 Delivery Room Air Room Air 04/18/18 04/18/18 16:16 16:22 Temp 97.4 Pulse 54 Resp 16 B/P (MAP) 170/85 (113) Pulse Ox 100 100 O2 Delivery Room Air Room Air O2 Flow Rate 0.00 Capillary Refill : Less Than 3 Seconds Constitutional: appears stated age, AAO x 3; No apparent distress; well- developed, well-nourished HEENT: PERRL; No discharge; hearing is well preserved, oral hygience is good; No ulceration, No xanthelasmas are seen Neck: No carotid bruit; carotid pulses are 2 + bilaterally Respiratory: No accessory muscle use, No respiratory distress, No chest tender , No chest expansion is symmetric; chest is bilaterally symmetric; No lungs clear to percussion; lungs clear to auscultation; No crackles, No rhonchi, No rales, No stridor, No wheezing, No pleural rub, No other Cardiovascular: regular rate-rhythm; No irregularly irregular, No extra beats, No parasternal heave is noted, No JVD, No edema, No bradycardia, No tachycardia , No point of maximal impulse, No cardiac thrills are palpable; S1 and S2; No gallop/S3, No gallop/S4, No diastolic murmur, No systolic murmur, No friction rub, No click, No other Gastrointestinal: No tender, No soft, No round, No distended, No pulsatile mass , No organomegaly, No guarding, No rebound, No tenderness, No hernia, No mass, No audible bowel sounds, No abnormal bowel sounds, No abdominal bruits, No spleenomegaly, No other Rectal: deferred Extremities: No normal range of motion, No non-tender, No normal inspection, No pedal edema, No calf tenderness, No normal capillary refill, No pelvis stable , No calf tenderness, No inflammation, No pedal edema, No slow capillary refill , No swelling, No other, No abrasion, No clubbing, No cyanosis, No ecchymosis, No laceration, No no lower extremity edema bilateral, No significant edema, No tenderness, No wound Neurologic/Psychiatric: no motor/sensory deficits, alert, normal mood/affect, oriented x 3, power is 5/5 both on sides Skin: No normal color, No warm/dry, No cyanosis, No cool, No diaphoresis, No damp, No ecchymosis, No jaundice, No mottled, No pallor, No rash, No tattoos/ piercings, No ulcerations, No rash on exposed areas, No ulcerations on exposed areas, No other Data Review Labs Laboratory Tests 04/18/18 09:00: White Blood Count 5.5, Red Blood Count 3.94L, Hemoglobin 13.0L, Hematocrit 37L, Mean Corpuscular Volume 95, Mean Corpuscular Hemoglobin 33, Mean Corpuscular Hemoglobin Concent 35, Red Cell Distribution Width 13.8, Platelet Count 151, Mean Platelet Volume 11.2H, Neutrophils (%) (Auto) 53, Lymphocytes (%) (Auto) 36 , Monocytes (%) (Auto) 9, Eosinophils (%) (Auto) 3, Basophils (%) (Auto) 0, Neutrophils # (Auto) 2.9, Lymphocytes # (Auto) 2.0, Monocytes # (Auto) 0.5, Eosinophils # (Auto) 0.2, Basophils # (Auto) 0.0, Prothrombin Time 14.2, INR Comment 1.1, Activated Partial Thromboplast Time 29, Sodium Level 138, Potassium Level 3.4L, Chloride Level 109H, Carbon Dioxide Level 22, Anion Gap 7 , Blood Urea Nitrogen 13, Creatinine 1.15, Estimat Glomerular Filtration Rate > 60, BUN/Creatinine Ratio 11, Glucose Level 109H, Calcium Level 8.7, Magnesium Level 2.1, Total Bilirubin 0.5, Aspartate Amino Transf (AST/SGOT) 14, Alanine Aminotransferase (ALT/SGPT) 8, Alkaline Phosphatase 74, Myoglobin 42.4, Troponin I < 0.30, Total Protein 6.6, Albumin 3.9 04/18/18 09:35: D-Dimer 0.53H, B-Type Natriuretic Peptide 92.3 ECG Impression ECG Initial ECG Rhythm: Normal Sinus Initial ECG Impression: Nonspecific Changes A/P-Cardiology Assessment/Admission Diagnosis Shortness of breath, CAD/CABG/PCI, Active smoking, Positive D dimer Plan Shortness of breath, positive D dimer. VQ scan pending. Chest x-ray shows COPD. COPD treatment with nebulizer and inhalers. CAD/CABG/PCI, first troponin was negative. EKG is negative. Recommend echocardiogram. Patient is on aspirin, Plavix and beta gale. Should be on a statin. Active smoking, smoking cessation was strongly recommended. Positive D dimer, VQ scan pending. Lovenox was given in the ER. 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 Thank you for your consultation. Please call me if you have any questions. Dulce Hdz MD, FACP, FACC, FSCAI, FHRS, CCDS Interventional Cardiology Cardiac Electrophysiology Vascular Medicine and Endovascular Interventions Clinical Quality Measures DVT/VTE Risk/Contraindication: Risk Factor Score Per Nursin RFS Level Per Nursing on Admit: 3=High Ricardo HDZ MD Apr 18, 2018 4:45 pm
[2018-04-18 17:00] VITALS: BP 149/70
[2018-04-18] MEDS ORDERED: RT-ADVAIR HFA 115/21 MCG PER PUFF IH SCH (21:00)
[2018-04-19] MEDS ORDERED: UMECLIDINIUM BROMIDE (INCRUSE ELLIPTA) 7'S IH SCH (08:00)
== END 2018-04-18 17:50 | disposition left against medical advice (07) ==
LOC: EDUNIT# 08:50 → ER 08:52 → ICU 11:17 → UNDOADMOB 11:17 → ICU 12:12 → UNDODISOB 17:50
PROVIDERS: ADMIT Internal Medicine; ATTEND Internal Medicine
DX: J44.9 Chronic obstructive pulmonary disease, unspecified (principal); I25.10 Atherosclerotic heart disease of native coronary artery without angina pectoris; Z95.1 Presence of aortocoronary bypass graft; Z95.5 Presence of coronary angioplasty implant and graft; F17.210 Nicotine dependence, cigarettes, uncomplicated; Z79.82 Long term (current) use of aspirin; Z79.01 Long term (current) use of anticoagulants
CPT/HCPCS: 36415; 71046; 78582; 80053; 83735; 83874; 83880; 84484; 85025; 85379; 85610; 85730; 93005; 93041; 93306; 94010; 94640; 96372

== ENCOUNTER 2018-04-21 15:30 | Observation (INO) | payer MEDICARE, MEDICAID ==
[~2018-04-21] VITALS: Ht 182.9 cm; Wt 92.6 kg
[~2018-04-21 15:30] MED LIST changes: +ASPI-983 PO; +CLOP75TA28 PO; +DOCU-143 PO
--- NOTE | 2018-04-21 15:45 | ED Chest Pain ---
General Stated Complaint: SOB/CP Source: patient Exam Limitations: no limitations History of Present Illness Date Seen by Provider: Apr 21, 2018 Time Seen by Provider: 15:36 Initial Comments Patient is a 72-year-old male who is brought into the emergency room by [facility] with chest pain and shortness of air. [place] his chest pain started 1 hour prior to arrival. The chest pain was sharp, substernal, and central, that did not radiate anywhere. He also had shortness of breath with this chest pain. Denies nausea, vomiting, dizziness, lightheadedness. He reports that on 04/18/18 he was admitted to the hospital with chest pain but he left AGAINST MEDICAL ADVICE the following day. EMS gave him a DuoNeb treatment, 324mg of aspirin, and one nitroglycerin 0.4 mg sublingual. The patient's pain and shortness of breath is completely gone at this time. 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: Yes NTG SL ELECTRICAL TECHNOLOGY INSTRUCTOR: Yes Associated Symptoms: No abdominal pain, No back pain, No diaphoresis, No dizziness, No edema, No fatigue; shortness of breath Allergies and Home Medications Allergies Coded Allergies: Iodinated Contrast- Oral and IV Dye (Verified Allergy, Unknown, 01/20/09) Home Medications Aspirin 81 Mg Tablet.dr, 81 MG PO DAILY, (Reported) Clopidogrel Bisulfate 75 Mg Tablet, 75 MG PO DAILY, (Reported) Docusate Sodium 100 Mg Capsule, 100 MG PO DAILY, (Reported) Metoprolol Succinate 25 Mg Tab.er.24h, 25 MG PO DAILY, (Reported) Patient Home Medication List Home Medication List Reviewed: Yes Review of Systems Constitutional: see HPI; No chills, No diaphoresis EENTM: See HPI; No Blurred Vision, No Double Vision Respiratory: See HPI; Denies Cough, Denies Orthopnea; Shortness of Air; Denies SOA With Exertion, Denies SOA at Rest Cardiovascular: See HPI, Chest Pain; Denies Edema, Denies Irregular Heart Rate , Denies Palpitations, Denies Syncope Gastrointestinal: See HPI; Denies Abdomen Distended, Denies Abdominal Pain, Denies Nausea, Denies Vomiting Genitourinary: See HPI; Denies Burning, Denies Discharge Musculoskeletal: see HPI; No back pain, No gout Skin: see HPI; No change in color, No change in hair/nails Psychiatric/Neurological: See HPI; Denies Anxiety, Denies Depressed Endocrine: See HPI; Denies Excessive Sweating, Denies Flushing Hematologic/Lymphatic: See HPI; Denies Anemia, Denies Blood Clots All Other Systems Reviewed Negative Unless Noted: Yes Past Yhhtiws-Wlrerk-Vqolsg Hx Past Med/Social Hx: Reviewed Nursing Past Med/Soc Hx Patient Social History Type Used: Cigarettes Recent Hopitalizations: No Immunizations Up To Date Tetanus Booster (TDap): More than 5yrs Date of Pneumonia Vaccine: Apr 18, 2017 Seasonal Allergies Seasonal Allergies: No Past Medical History Surgeries: Yes (HEMORRHOIDECTOMY) CABG, Coronary Stent Respiratory: No Cardiac: Yes (5 WAY BYPASS, STENTS, BALLOONS.) Coronary Artery Disease, Heart Attack, Hypertension Neurological: Yes TIA Reproductive Disorders: No Genitourinary: No Benign Prostatic Hyperpl Gastrointestinal: No Gastroesophageal Reflux Musculoskeletal: Yes Arthritis Endocrine: No HEENT: No Cancer: No Psychosocial: No Sleep Difficulties Integumentary: No (SCATTERED BRUISING/ON PLAVIX) Blood Disorders: No Family Medical History Reviewed Nursing Family Hx Physical Exam Vital Signs Vital Signs - First Documented Capillary Refill : Height, Weight, BMI Height: 6'0.00" Weight: 180lbs. 0.0oz. 81.782228vs; 24.4 BMI Method:Stated General Appearance: No Apparent Distress, WD/WN HEENT: PERRL/EOMI, TMs Normal, Normal ENT Inspection, Pharynx Normal Neck: Full Range of Motion, Normal Inspection, Non Tender, Supple Respiratory: Chest Non Tender, Lungs Clear, Normal Breath Sounds, No Accessory Muscle Use, No Respiratory Distress Cardiovascular: Regular Rate, Rhythm, No Edema, No Gallop, No JVD, No Murmur, Normal Peripheral Pulses Gastrointestinal: Normal Bowel Sounds, No Organomegaly, No Pulsatile Mass, Non Tender, Soft Extremity: Normal Capillary Refill, Normal Inspection, Normal Range of Motion, Non Tender, No Calf Tenderness Neurologic/Psychiatric: Alert, Oriented x3, No Motor/Sensory Deficits Skin: Normal Color, Warm/Dry Lymphatic: No Adenopathy Progress/Results/Core Measures Results/Orders Lab Results Laboratory Tests Test 04/21/18 15:30 Range/Units White Blood Count 5.6 4.3-11.0 10^3/uL Red Blood Count 3.92 L 4.35-5.85 10^6/uL Hemoglobin 12.6 L 13.3-17.7 G/DL Hematocrit 37 L 40-54 % Mean Corpuscular Volume 95 80-99 FL Mean Corpuscular Hemoglobin 32 25-34 PG Mean Corpuscular Hemoglobin Concent 34 32-36 G/DL Red Cell Distribution Width 13.9 10.0-14.5 % Platelet Count 172 130-400 10^3/uL Mean Platelet Volume 11.8 H 7.4-10.4 FL Neutrophils (%) (Auto) 49 42-75 % Lymphocytes (%) (Auto) 41 12-44 % Monocytes (%) (Auto) 7 0-12 % Eosinophils (%) (Auto) 3 0-10 % Basophils (%) (Auto) 0 0-10 % Neutrophils # (Auto) 2.8 1.8-7.8 X 10^3 Lymphocytes # (Auto) 2.3 1.0-4.0 X 10^3 Monocytes # (Auto) 0.4 0.0-1.0 X 10^3 Eosinophils # (Auto) 0.2 0.0-0.3 10^3/uL Basophils # (Auto) 0.0 0.0-0.1 10^3/uL Prothrombin Time 13.5 12.2-14.7 SEC INR Comment 1.0 0.8-1.4 Activated Partial Thromboplast Time 27 24-35 SEC D-Dimer 0.47 0.00-0.49 UG/ML Sodium Level 139 135-145 MMOL/L Potassium Level 3.7 3.6-5.0 MMOL/L Chloride Level 111 H 98-107 MMOL/L Carbon Dioxide Level 20 L 21-32 MMOL/L Anion Gap 8 5-14 MMOL/L Blood Urea Nitrogen 12 7-18 MG/DL Creatinine 0.91 0.60-1.30 MG/DL Estimat Glomerular Filtration Rate > 60 BUN/Creatinine Ratio 13 Glucose Level 132 H 70-105 MG/DL Calcium Level 8.8 8.5-10.1 MG/DL Magnesium Level 2.2 1.8-2.4 MG/DL Total Bilirubin 0.4 0.1-1.0 MG/DL Aspartate Amino Transf (AST/SGOT) 16 5-34 U/L Alanine Aminotransferase (ALT/SGPT) 8 0-55 U/L Alkaline Phosphatase 78 40-136 U/L Total Creatine Kinase 61 30-200 U/L Creatine Kinase MB 0.7 <6.6 NG/ML Myoglobin 29.2 10.0-92.0 NG/ML Troponin I < 0.30 <0.30 NG/ML B-Type Natriuretic Peptide 150.4 H <100.0 PG/ML Total Protein 6.7 6.4-8.2 GM/DL Albumin 3.7 3.2-4.5 GM/DL Amylase Level 52 25-125 U/L Lipase 9 8-78 U/L My Orders Orders - REHANA VALDIVIA Cbc With Automated Diff (04/21/18 15:37) Magnesium (04/21/18 15:37) Chest 1 View, Ap/Pa Only (04/21/18 15:37) Ekg Tracing (04/21/18 15:37) Cardiac Profile 1 (04/21/18 15:37) Comprehensive Metabolic Panel (04/21/18 15:37) Myoglobin Serum (04/21/18 15:37) Protime With Inr (04/21/18 15:37) Partial Thromboplastin Time (04/21/18 15:37) O2 (04/21/18 15:37) Monitor-Rhythm Ecg Trace Only (04/21/18 15:37) Lipid Panel (04/22/18 06:00) Saline Lock/Iv-Start (04/21/18 15:37) Creatine Kinase (04/21/18 15:37) Creatine Kinase Mb (04/21/18 15:37) Lipase (04/21/18 15:37) Amylase (04/21/18 15:37) BNP (04/21/18 15:37) Fibrin Degradation Products (04/21/18 15:37) Albuterol/Ipra Inhalation Soln (Duoneb I (04/21/18 16:00) Svn Small Volume Nebulizer (04/21/18 15:50) Nitroglycerin 0.4 Mg Btl 25's (Nitrostat (04/21/18 16:02) Ketorolac Injection (Toradol Injection) (04/21/18 16:15) Medications Given in ED Current Medications Medications Dose Ordered Sig/Hasmukh Route Start Time Stop Time Status Last Admin Dose Admin Albuterol/ Ipratropium 3 ml ONCE ONCE INH 04/21/18 16:00 04/21/18 16:01 DC 04/21/18 16:02 3 ML Ketorolac Tromethamine 30 mg ONCE ONCE IVP 04/21/18 16:15 04/21/18 16:16 DC 04/21/18 16:15 30 MG Nitroglycerin 0.4 mg STK-MED ONCE SL 04/21/18 16:02 04/21/18 16:05 DC 04/21/18 16:04 0.4 MG Vital Signs/I&O 04/21/18 04/21/18 04/21/18 04/21/18 15:30 15:30 15:30 16:02 Temp 97.5 Pulse 63 Resp 29 B/P (MAP) 142/76 (98) Pulse Ox 94 94 98 O2 Delivery Nasal Cannula Nasal Cannula Nasal Cannula O2 Flow Rate 2.00 2.0 2.00 Progress Progress Note : Time: 16:06 Progress Note Patient's chest pain has returned at this time. He rates the pain 8 out of 10. The chest pain is in the same area as before, substernal central and does not radiate but the pain is worse with deep breathing. Nitroglycerin sublingual has been ordered and 30 mg of Toradol IV. Initial ECG Impression Date: Apr 21, 2018 EKG : Rate: 63 Rhythm: Normal Sinus Intervals: Normal ECG Comparisson: Unchanged ECG Impression: Normal, Nonspecific Changes Diagnostic Imaging Diagonstic Imaging: Xray Plain Films/CT/US/NM/MRI: chest Comments NAME: KEMAR CAMPA [facility] REC#: [id number] PT STATUS: REG ER : 1945 PHYSICIAN: REHANA VALDIVIA ADMIT DATE: 04/21/18/ER Draft Date of Exam:04/21/18 CHEST 1 VIEW, AP/PA ONLY INDICATION: Chest pain. COMPARISON: 04/18/2018. FINDINGS: Portable upright views of the chest were obtained. The heart size is normal. The pulmonary vessels appear unremarkable. There is no pneumothorax, mediastinal widening, or pleural fluid. Postoperative changes are again seen in the mediastinum. The lungs are clear. IMPRESSION: No radiographic evidence of an acute cardiopulmonary abnormality. No interval change from the prior study. Dictated on workstation # [id number] Dict: 04/21/18 1609 Trans: 04/21/18 1611 [id number] Interpreted by: SHUKRI SEXTON DO Electronically signed by: Reviewed: Reviewed by Me Departure Communication (Admissions) Time/Spoke to Admitting Phy: 16:[address] Alvarado she agrees with plans of admission and referral to Dr. Hdz. I called Dr. Hdz and left a message at this time. Impression Primary Impression: Chest pain Disposition: ADMITTED INPATIENT Condition: Stable/Unchanged Admissions Decision to Admit Reason: Admit from ER (General) Decision to Admit/Date: Apr 21, 2018 Time/Decision to Admit Time: 16:51 Departure-Patient Inst. Referrals: BROOKS KAM MD (PCP/Family) Primary Care Physician REHANA VALDIVIA Apr 21, 2018 15:45
[2018-04-21 15:46] LABS: BASOPHILS % (AUTO) 0 % (0-10); EOSINOPHILS # (AUTO) 0.2 10^3/uL (0.0-0.3); EOSINOPHILS % (AUTO) 3 % (0-10); HEMATOCRIT 37 % (40-54); HEMOGLOBIN 12.6 G/DL (13.3-17.7); LYMPHOCYTES # (AUTO) 2.3 X 10^3 (1.0-4.0); LYMPHOCYTES % (AUTO) 41 % (12-44); MEAN CORPUSCULAR HEMOGLOBIN 32 PG (25-34); MEAN CORPUSCULAR HGB CONC 34 G/DL (32-36); MEAN CORPUSCULAR VOLUME 95 FL (80-99); MEAN PLATELET VOLUME 11.8 FL (7.4-10.4); MONOCYTES # (AUTO) 0.4 X 10^3 (0.0-1.0); MONOCYTES % (AUTO) 7 % (0-12); NEUTROPHILS # (AUTO) 2.8 X 10^3 (1.8-7.8); NEUTROPHILS % (AUTO) 49 % (42-75); PLATELET COUNT 172 10^3/uL (130-400); RED BLOOD COUNT 3.92 10^6/uL (4.35-5.85); RED CELL DISTRIBUTION WIDTH 13.9 % (10.0-14.5); WHITE BLOOD COUNT 5.6 10^3/uL (4.3-11.0)
[2018-04-21 15:56] LABS: PROTHROMBIN TIME PATIENT 13.5 SEC (12.2-14.7)
[2018-04-21] MEDS ORDERED: RT-ALBUTEROL/IPRATROPIUM 3 ML (DUONEB) VIAL INH ONE (16:00)
[2018-04-21] MEDS ORDERED: NITROGLYCERIN 0.4 MG SL TABS BTL 25'S SL ONE (16:02)
[2018-04-21 16:07] LABS: ALANINE AMINOTRANSFERASE 8 U/L (0-55); ALBUMIN 3.7 GM/DL (3.2-4.5); ALKALINE PHOSPHATASE 78 U/L (40-136); AMYLASE 52 U/L (25-125); BILIRUBIN,TOTAL 0.4 MG/DL (0.1-1.0); BUN/CREATININE RATIO 13; CALCIUM 8.8 MG/DL (8.5-10.1); CARBON DIOXIDE 20 MMOL/L (21-32); CHLORIDE 111 MMOL/L (98-107); CREATINE KINASE 61 U/L (30-200); CREATININE SERUM 0.91 MG/DL (0.60-1.30); GFR ESTIMATED > 60; GLUCOSE 132 MG/DL (70-105); LIPASE 9 U/L (8-78); MAGNESIUM 2.2 MG/DL (1.8-2.4); POTASSIUM 3.7 MMOL/L (3.6-5.0); SODIUM 139 MMOL/L (135-145); TOTAL PROTEIN 6.7 GM/DL (6.4-8.2)
--- NOTE | 2018-04-21 16:11 | Diagnostic Imaging Report ---
INDICATION: Chest pain. COMPARISON: 04/18/2018. FINDINGS: Portable upright views of the chest were obtained. The heart size is normal. The pulmonary vessels appear unremarkable. There is no pneumothorax, mediastinal widening, or pleural fluid. Postoperative changes are again seen in the mediastinum. The lungs are clear. IMPRESSION: No radiographic evidence of an acute cardiopulmonary abnormality. No interval change from the prior study. Dictated by: Dictated on workstation # [id number]
[2018-04-21 16:14] LABS: CREATINE KINASE MB 0.7 NG/ML (<6.6); MYOGLOBIN SERUM 29.2 NG/ML (10.0-92.0)
[2018-04-21] MEDS ORDERED: KETOROLAC 30 MG/ML VIAL IVP ONE (16:15)
[2018-04-21] MEDS ORDERED: CATHETER FLUSH 10 ML SYR IV PRN (17:45)
[2018-04-21 17:49] VITALS: BP 141/67
[2018-04-21 20:13] VITALS: BP 141/67
[2018-04-21 20:30] VITALS: BP 138/67
[2018-04-21] MEDS ORDERED: RT-ALBUTEROL SULF 2.5 MG/3 ML PRE-MIX VIAL INH PRN (21:00)
[2018-04-21] MEDS: CATHETER FLUSH 10 ML SYR IV SCH (21:53)
[2018-04-21 23:57] VITALS: BP 135/66
[2018-04-22 04:34] VITALS: BP 145/67
[2018-04-22] MEDS: CATHETER FLUSH 10 ML SYR IV SCH (06:17)
[2018-04-22 07:32] LABS: BASOPHILS % (AUTO) 0 % (0-10); EOSINOPHILS # (AUTO) 0.2 10^3/uL (0.0-0.3); EOSINOPHILS % (AUTO) 3 % (0-10); HEMATOCRIT 37 % (40-54); HEMOGLOBIN 12.8 G/DL (13.3-17.7); LYMPHOCYTES # (AUTO) 1.5 X 10^3 (1.0-4.0); LYMPHOCYTES % (AUTO) 26 % (12-44); MEAN CORPUSCULAR HEMOGLOBIN 33 PG (25-34); MEAN CORPUSCULAR HGB CONC 35 G/DL (32-36); MEAN CORPUSCULAR VOLUME 96 FL (80-99); MEAN PLATELET VOLUME 11.2 FL (7.4-10.4); MONOCYTES # (AUTO) 0.5 X 10^3 (0.0-1.0); MONOCYTES % (AUTO) 8 % (0-12); NEUTROPHILS # (AUTO) 3.6 X 10^3 (1.8-7.8); NEUTROPHILS % (AUTO) 63 % (42-75); PLATELET COUNT 145 10^3/uL (130-400); RED BLOOD COUNT 3.84 10^6/uL (4.35-5.85); RED CELL DISTRIBUTION WIDTH 13.9 % (10.0-14.5); WHITE BLOOD COUNT 5.7 10^3/uL (4.3-11.0)
[2018-04-22 07:55] LABS: ALANINE AMINOTRANSFERASE 8 U/L (0-55); ALBUMIN 3.4 GM/DL (3.2-4.5); ALKALINE PHOSPHATASE 78 U/L (40-136); BILIRUBIN,TOTAL 0.3 MG/DL (0.1-1.0); BUN/CREATININE RATIO 18; CARBON DIOXIDE 26 MMOL/L (21-32); CHLORIDE 113 MMOL/L (98-107); CHOLESTEROL 163 MG/DL (< 200); CREATININE SERUM 0.92 MG/DL (0.60-1.30); GFR ESTIMATED > 60; GLUCOSE 104 MG/DL (70-105); HDL CHOLESTEROL 35 MG/DL (40-60); POTASSIUM 3.9 MMOL/L (3.6-5.0); SODIUM 143 MMOL/L (135-145); TOTAL PROTEIN 5.8 GM/DL (6.4-8.2); TRIGLYCERIDES 71 MG/DL (<150); VLDL CHOLESTEROL 14 MG/DL (5-40)
[2018-04-22 08:03] LABS: CREATINE KINASE MB 0.7 NG/ML (<6.6)
[2018-04-22 08:21] VITALS: BP 172/71
--- NOTE | 2018-04-22 09:03 | History & Physical-Hospitalist ---
History of Present Illness HPI/Chief Complaint Pt is a 72yoCM with a PMH of CAD with 4 vessel CABG, HTN, and tobacco abuse who presented to the ER with CC of chest pain and SOB. He was admitted last week for similar symptoms but signed out AMA prior to complete evaluation. He returned yesterday due to left sided sharp chest pain that started while he was golfing. He also complained of SOB. He denied any radiation of the pain, SOB, nausea, or vomiting. He denies chest pain currently. He does have a cough but states that is chronic due to his smoking. Source: patient Exam Limitations: no limitations Date Seen 04/22/18 Time Seen by Provider: 09:04 Attending Physician Seferino Alvarado MD PCP SelfNain MD Referring Physician Date of Admission Apr 21, 2018 at 5:06 pm Home Medications & Allergies Home Medications Reviewed patient Home Medication Reconciliation performed by pharmacy medication reconciliations avionics technician and/or nursing. Patients Allergies have been reviewed. Allergies Allergies Coded Allergies Iodinated Contrast- Oral and IV Dye (Verified Allergy, Unknown, 01/20/09) Past Pnpsvli-Qkjdlx-Fkolqm Hx Past Med/Social Hx: Reviewed Nursing Past Med/Soc Hx Patient Social History Alcohol Use: Denies Use Recreational Drug Use: No Smoking Status: Current Everyday Smoker (2ppd history with recent cutback to 1/ 2 ppd) Cigaretts per day: 10 Type Used: Cigarettes Physical Abuse Screen: No Sexual Abuse: No Recent Foreign Travel: No Contact w/other who traveled: No Recent Hopitalizations: Yes (CHEST PAIN LEFT AMA) Recent Infectious Disease Expo: No Immunizations Up To Date Tetanus Booster (TDap): More than 5yrs Date of Pneumonia Vaccine: Apr 18, 2017 Seasonal Allergies Seasonal Allergies: No Past Medical History Surgeries: CABG, Coronary Stent, Ear Surgery Cardiac: Coronary Artery Disease, Heart Attack, Hypertension Neurological: TIA Reproductive: No Genitourinary: Benign Prostatic Hyperpl Gastrointestinal: Gastroesophageal Reflux, Polyps, Hiatal Hernia Musculoskeletal: Arthritis Psychosocial: Sleep Difficulties History of Blood Disorders: No Adverse Reaction to Blood Sullivan: No Family History Reviewed Nursing Family Hx Heart Disease, CAD Over 55 Years Old Review of Systems Constitutional: no symptoms reported EENTM: no symptoms reported Respiratory: see HPI Cardiovascular: see HPI Gastrointestinal: no symptoms reported Genitourinary: no symptoms reported Musculoskeletal: no symptoms reported Skin: no symptoms reported Psychiatric/Neurological: No Symptoms Reported Physical Exam Physical Exam Vital Signs Vital Signs - First Documented 04/21/18 20:13 FiO2 28 Capillary Refill : Less Than 3 Seconds Height, Weight, BMI Height: 6'0.00" Weight: 204lbs. 2.6oz. 92.490217lj; 27.7 BMI Method:Stated General Appearance: No Apparent Distress, WD/WN, Anxious HEENT: PERRL/EOMI, Moist Mucous Membranes Neck: Non Tender, Supple Respiratory: Lungs Clear, No Respiratory Distress Cardiovascular: Regular Rate, Rhythm, No Murmur Gastrointestinal: Normal Bowel Sounds, Non Tender, Soft Extremity: Normal Capillary Refill, No Calf Tenderness Neurologic/Psychiatric: Alert, Oriented x3, Normal Mood/Affect Skin: Normal Color, Warm/Dry Results Results/Procedures Labs Laboratory Tests 04/22/18 07:19 Patient resulted labs reviewed. Assessment/Plan Admission Diagnosis Chest pain Admission Status: Observation Diagnosis/Problems Diagnosis/Problems (1) Chest pain Status: Acute Assessment & Plan: Given risk factors concern for cardiac origin Plan for stress test today V/Q scan from last week low probability for PE and negative D-dimer this admission (2) CAD (coronary artery disease) Status: Chronic Assessment & Plan: CABG 7 years ago Follows with outside cardiology He is unsure of when he had his last stress test of cath Will request records Qualifiers: Coronary Disease-Associated Artery/Lesion type: bypass graft [place] vs. transplanted heart: [place] heart Associated angina: angina presence unspecified Qualified Codes: I25.810 - Atherosclerosis of coronary artery bypass graft(s) without angina pectoris (3) Essential (primary) hypertension Assessment & Plan: BP elevated today Trend Resume home BP meds when no longer NPO (4) Counseling regarding end of life decision making Assessment & Plan: Discussed code status and recommend Advance Directive- declines at this time State he would like "everything done" to keep him alive When asked to clarify he states he would not want to be dependent on a machine to live but wants everything tried Advised again on importance of advance directive but again declined Clinical Quality Measures AMI/AHF: ASA po Prior to arrival: Yes DVT/VTE Risk/Contraindication: Risk Factor Score Per Nursin RFS Level Per Nursing on Admit: 4+=Very High SEFERINO ALVARADO MD Apr 22, 2018 09:03
--- NOTE | 2018-04-22 09:49 | Consultation-Cardiology ---
HPI-Cardiology Cardiology Consultation: Date of Consultation 04/22/18 Date of Admission Attending Physician Seferino Alvarado MD Admitting Physician Nain De Guzman MD Consulting Physician Ricardo HDZ MD HPI: Time Seen by Provider: 09:30 Chief Complaint: Chest pain This is a 72-year-old gentleman who follows with cardiology in [facility]. He has history of CABG. He is an active smoker. He presented with recent chest pain and was recommended inpatient stress test however the patient signed out AMA. He presented again yesterday with complains of chest pain for one hour and was admitted overnight. Review of Systems-Cardiology Review of Systems Constitutional: As described under HPI; No As described under HPI, No no symptoms reported, No chills, No fever, No lightheadedness Eyes: No As described under HPI, No no symptoms reported, No blindness, No blurred vision, No contact lenses, No drainage, No decreased acuity, No foreign body sensation, No pain, No vision change Ears/Nose/Throat: No As described under HPI, No no symptoms reported, No chronic hearing loss, No ear discharge, No ear pain, No nasal drainage, No ulcerations Respiratory: No no symptoms reported; As described under HPI; No As described under HPI, No cough, No orthopnea, No shortness of breath, No SOB with excertion Cardiovascular: No no symptoms reported; As described under HPI; No As described under HPI; chest pain; No edema, No irregular heart rate, No lightheadedness, No palpitations Gastrointestinal: No no symptoms reported, No As described under HPI, No abdomen distended, No abdominal pain, No blood streaked bowels, No constipation , No diarrhea, No nausea, No vomiting, No stool coloration changes Genitourinary: No As described under HPI, No burning, No dysuria, No discharge , No frequency, No flank pain, No hematuria, No urgency Skin: No rash, No skin related problems, No ulcerations Psychiatric/Neurological: No anxiety, No depression, No seizure, No focal weakness, No syncope Hematologic: No bleeding abnormalities All Other Systems Reviewed Negative Unless Noted: Yes OVO-Gybgvy-Qigxiz Hx Patient Social History Alcohol Use: Denies Use Recreational Drug Use: No Smoking Status: Current Everyday Smoker Type Used: Cigarettes Recent Foreign Travel: No Recent Infectious Disease Expo: No Physical Abuse Screen: No Sexual Abuse: No Immunizations Up To Date Tetanus Booster (TDap): More than 5yrs Date of Pneumonia Vaccine: Apr 18, 2017 Past Medical History PMH As described under Assessment. Allergies and Home Medications Allergies Coded Allergies: Iodinated Contrast- Oral and IV Dye (Verified Allergy, Unknown, 01/20/09) Home Medications Aspirin 81 Mg Tablet.dr, 81 MG PO DAILY, (Reported) Atorvastatin Calcium 40 Mg Tablet, 40 MG PO DAILY Prescribed by: SEFERINO ALVARADO on 04/22/18 1352 Clopidogrel Bisulfate 75 Mg Tablet, 75 MG PO DAILY, (Reported) Docusate Sodium 100 Mg Capsule, 100 MG PO DAILY, (Reported) Metoprolol Succinate 25 Mg Tab.er.24h, 25 MG PO DAILY, (Reported) Patient Home Medication List Home Medication List Reviewed: Yes Physical Exam-Cardiology Physical Exam Vital Signs/I&O 04/22/18 04/22/18 04/22/18 04/22/18 12:00 12:15 12:18 13:00 Pulse 58 71 69 B/P (MAP) 169/91 (117) 171/83 (112) Pulse Ox 100 99 O2 Delivery Room Air 04/22/18 14:50 Pulse 69 Resp 16 B/P (MAP) 168/88 Pulse Ox 99 O2 Delivery Room Air O2 Flow Rate 2.00 04/22/18 00:00 Intake Total 630 ml Output Total 600 ml Balance 30 ml Capillary Refill : Less Than 3 Seconds Constitutional: appears stated age; No apparent distress; well-developed, well- nourished HEENT: PERRL; No discharge; hearing is well preserved, oral hygience is good; No ulceration, No xanthelasmas are seen Neck: No carotid bruit; carotid pulses are 2 + bilaterally Respiratory: chest is bilaterally symmetric, lungs clear to auscultation Cardiovascular: regular rate-rhythm, S1 and S2 Gastrointestinal: No tender, No soft, No round, No distended, No pulsatile mass , No organomegaly, No guarding, No rebound, No tenderness, No hernia, No mass, No audible bowel sounds, No abnormal bowel sounds, No abdominal bruits, No spleenomegaly, No other Rectal: deferred Genital/Rectal: No normal genital exam, No normal rectal exam, No heme negative stool, No normal rectal tone, No normal vaginal exam, No blood at urethral meatus, No decreased rectal tone, No heme positive stool, No tenderness , No other Extremities: No clubbing, No cyanosis, No significant edema Neurologic/Psychiatric: alert, oriented x 3, power is 5/5 both on sides Skin: No normal color, No warm/dry, No cyanosis, No cool, No diaphoresis, No damp, No ecchymosis, No jaundice, No mottled, No pallor, No rash, No tattoos/ piercings, No ulcerations, No rash on exposed areas, No ulcerations on exposed areas, No other Data Review Labs Laboratory Tests 04/22/18 07:19: White Blood Count 5.7, Red Blood Count 3.84L, Hemoglobin 12.8L, Hematocrit 37L, Mean Corpuscular Volume 96, Mean Corpuscular Hemoglobin 33, Mean Corpuscular Hemoglobin Concent 35, Red Cell Distribution Width 13.9, Platelet Count 145, Mean Platelet Volume 11.2H, Neutrophils (%) (Auto) 63, Lymphocytes (%) (Auto) 26 , Monocytes (%) (Auto) 8, Eosinophils (%) (Auto) 3, Basophils (%) (Auto) 0, Neutrophils # (Auto) 3.6, Lymphocytes # (Auto) 1.5, Monocytes # (Auto) 0.5, Eosinophils # (Auto) 0.2, Basophils # (Auto) 0.0, Sodium Level 143, Potassium Level 3.9, Chloride Level 113H, Carbon Dioxide Level 26, Anion Gap 4L, Blood Urea Nitrogen 17, Creatinine 0.92, Estimat Glomerular Filtration Rate > 60, BUN/ Creatinine Ratio 18, Glucose Level 104, Calcium Level 9.0, Total Bilirubin 0.3, Aspartate Amino Transf (AST/SGOT) 13, Alanine Aminotransferase (ALT/SGPT) 8, Alkaline Phosphatase 78, Creatine Kinase MB 0.7, Total Protein 5.8L, Albumin 3.4 , Triglycerides Level 71, Cholesterol Level 163, LDL Cholesterol Direct 121, VLDL Cholesterol 14, HDL Cholesterol 35L ECG Impression ECG Initial ECG Rhythm: Normal Sinus Initial ECG Impression: Normal A/P-Cardiology Assessment/Admission Diagnosis Recurrent prolonged chest pain, CAD/CABG, Active smoking Plan Acute coronary syndrome ruled out with negative serial troponin. EKG did not show any significant ST-T wave deviation. Echocardiogram showed normal LV function. Nuclear stress test was performed which showed reversible mild inferior lateral ischemia. Coronary angiography was recommended however the patient wanted to follow-up with his medical device at [facility] in [place] and wanted to go home. Patient will be discharged on secondary prevention measures for CAD. He was educated that if he has recurrent chest pain he should seek immediate medical attention. He understands the risk associated with leaving without coronary angiography. Smoking cessation was strongly recommended. Thank you for your consultation. Please call me if you have any questions. Dulce Hdz MD, FACP, FACC, FSCAI, FHRS, CCDS Interventional Cardiology Cardiac Electrophysiology Vascular Medicine and Endovascular Interventions Clinical Quality Measures AMI/AHF: ASA po Prior to arrival: Yes DVT/VTE Risk/Contraindication: Risk Factor Score Per Nursin RFS Level Per Nursing on Admit: 4+=Very High Ricardo HDZ MD Apr 22, 2018 09:49
[2018-04-22] MEDS ORDERED: ENOXAPARIN 40 MG/0.4 ML (LOVENOX) SYR SC SCH (10:15)
[2018-04-22] MEDS ORDERED: REGADENOSON 0.4 MG/5 ML SYR (LEXISCAN) IV ONE ×2 (12:09→12:15)
[2018-04-22 12:15] VITALS: BP 169/91
[2018-04-22 12:18] VITALS: BP 171/83
--- NOTE | 2018-04-22 13:26 | Cardiology Stress Test Report ---
Stress Test Report Type of NM Stress Test: Test Type: LEXISCAN 0.4MG/5ML Date of Procedure/Referring: Date of Procedure: Apr 21, 2018 PCP Юлия Alvarado MD Admitting Physician Nain De Guzman MD Indications: Chest pain. Baseline Heart Rate: 53 Baseline Blood Pressure: Blood Pressure Systolic: 169 Blood Pressure Diastolic: 91 Baseline EKG: Baseline EKG: sinus rhythm. Summary: Patient was brought to the stress lab after informed consent was taken. Lexiscan stress test was performed according to the protocol. 0.4 mg of IV Lexiscan was given. This line EKG showed sinus rhythm at 53 BPM. Baseline blood pressure was 169/91 mmHg. Maximum heart rate was 78 BPM. Blood pressure was 214/91 mmHg. Patient did not have any chest pain, arrhythmias or ST-T wave abnormalities noted during the stress test. Low-grade exercise was performed. 10.62 mCi of Myoview were given for rest imaging and 33.0 mCi of Myoview was given for stress imaging. Transient ischemic dilatation score 1.09, ejection fraction of 55 percent. No wall motion abnormalities. Mild inferior lateral reversible defect of moderate intensity is noted. There is a mild apical fixed defect. Conclusion: Pharmacological stress test is negative for ischemia. Normal LV function with no wall motion abnormalities. Evidence of small to intermediate size infero-lateral ischemia. 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 Coronary angiography is recommended. Ricardo RIDER MD Apr 22, 2018 13:26
[2018-04-22] MEDS ORDERED: ATOR40TA70 PO (13:52)
--- NOTE | 2018-04-22 13:56 | Discharge Inst-Simple/Standard ---
Discharge Inst-Standard Patient Instructions/Follow Up Plan of Care/Instructions/FU: Please continue to take your medications as written. Please follow up with your training coordinator as we discussed. Activity as Tolerated: Yes Discharge Diet: Cardiac Diet Return to The Hospital For: Chest pain, SOB, if you feel you are getting worse. SEFERINO BRAVO MD Apr 22, 2018 1:56 pm
--- NOTE | 2018-04-22 14:04 | Short Stay Summary-Hospitalist ---
History of Present Illness HPI/Chief Complaint Pt is a 72yoCM with a PMH of CAD with 4 vessel CABG, HTN, and tobacco abuse who presented to the ER with CC of chest pain and SOB. He was admitted last week for similar symptoms but signed out AMA prior to complete evaluation. He returned yesterday due to left sided sharp chest pain that started while he was golfing. He also complained of SOB. He denied any radiation of the pain, SOB, nausea, or vomiting. He denies chest pain currently. He does have a cough but states that is chronic due to his smoking. Date Seen 04/22/18 Time Seen by Provider: 13:59 Attending Physician Seferino Alvarado MD PCP Nain De Guzman MD Referring Physician Date of Admission Apr 21, 2018 at 5:06 pm Home Medications & Allergies Home Medications Reviewed patient Home Medication Reconciliation performed by pharmacy medication reconciliations oscillograph technician and/or nursing. Patients Allergies have been reviewed. Allergies Allergies Coded Allergies Iodinated Contrast- Oral and IV Dye (Verified Allergy, Unknown, 01/20/09) Past Vhzrihg-Cukhfa-Xyfrtz Hx Past Med/Social Hx: Reviewed Nursing Past Med/Soc Hx Patient Social History Alcohol Use: Denies Use Recreational Drug Use: No Smoking Status: Current Everyday Smoker (2ppd history with recent cutback to 1/ 2 ppd) Cigaretts per day: 10 Type Used: Cigarettes Physical Abuse Screen: No Sexual Abuse: No Recent Foreign Travel: No Contact w/other who traveled: No Recent Hopitalizations: Yes (CHEST PAIN LEFT AMA) Recent Infectious Disease Expo: No Immunizations Up To Date Tetanus Booster (TDap): More than 5yrs Date of Pneumonia Vaccine: Apr 18, 2017 Seasonal Allergies Seasonal Allergies: No Past Medical History Surgeries: CABG, Coronary Stent, Ear Surgery Cardiac: Coronary Artery Disease, Heart Attack, Hypertension Neurological: TIA Reproductive: No Genitourinary: Benign Prostatic Hyperpl Gastrointestinal: Gastroesophageal Reflux, Polyps, Hiatal Hernia Musculoskeletal: Arthritis Psychosocial: Sleep Difficulties History of Blood Disorders: No Adverse Reaction to Blood Sullivan: No Family History Reviewed Nursing Family Hx Heart Disease, CAD Over 55 Years Old Review of Systems Constitutional: no symptoms reported EENTM: no symptoms reported Respiratory: see HPI, cough Cardiovascular: see HPI Gastrointestinal: no symptoms reported Genitourinary: no symptoms reported Musculoskeletal: no symptoms reported Skin: no symptoms reported Psychiatric/Neurological: No Symptoms Reported Physical Exam Physical Exam Vital Signs Vital Signs - First Documented 04/21/18 20:13 FiO2 28 Capillary Refill : Less Than 3 Seconds Height, Weight, BMI Height: 6'0.00" Weight: 204lbs. 2.6oz. [id number]; 27.7 BMI Method:Stated General Appearance: No Apparent Distress, WD/WN, Anxious HEENT: PERRL/EOMI, Moist Mucous Membranes Neck: Non Tender, Supple Respiratory: Lungs Clear, No Respiratory Distress Cardiovascular: Regular Rate, Rhythm, No Murmur Gastrointestinal: Normal Bowel Sounds, Non Tender, Soft Extremity: Normal Capillary Refill, No Calf Tenderness Neurologic/Psychiatric: Alert, Oriented x3, Normal Mood/Affect Skin: Normal Color, Warm/Dry Results Results/Procedures Labs Laboratory Tests 04/21/18 15:30 04/22/18 07:19 Patient resulted labs reviewed. Short Stay Diagnosis Discharge Diagnosis-Short Stay Admission Diagnosis Chest pain Final Discharge Diagnosis Chest Pain Conclusion Plan See below Diagnosis/Problems Diagnosis/Problems (1) Chest pain Status: Acute Assessment & Plan: Given risk factors concern for cardiac origin Troponin negative x2 Cardiology consulted, appreciate recrobert Stress test done today showed small reversible inferior lateral defect Unable to perform cardiac cath today due to iodine allergy and need for premedication Patient prefers to discharge and follow up with his Clinical Mental Health Counselor for further work up Discussed risks and benefits of discharge vs staying for cardiac cath here with patient and he prefers discharge home Recommended strongly that he needs to follow up and he agrees Discussed with Dr Hdz who is in agreement with plan V/Q scan from last week low probability for PE and negative D-dimer this admission (2) CAD (coronary artery disease) Status: Chronic Assessment & Plan: CABG 7 years ago Follows with outside cardiology He is unsure of when he had his last stress test of cath Qualifiers: Qualified Codes: I25.810 - Atherosclerosis of coronary artery bypass graft(s ) without angina pectoris (3) Essential (primary) hypertension Assessment & Plan: Continue home meds (4) Counseling regarding end of life decision making Assessment & Plan: Discussed code status and recommend Advance Directive- declines at this time State he would like "everything done" to keep him alive When asked to clarify he states he would not want to be dependent on a machine to live but wants everything tried Advised again on importance of advance directive but again declined Clinical Quality Measures AMI/AHF: ASA po Prior to arrival: Yes DVT/VTE Risk/Contraindication: Risk Factor Score Per Nursin RFS Level Per Nursing on Admit: 4+=Very High Copy Copies To 1: SELF,SEFERINO ISLAS MD, MD Apr 22, 2018 2:04 pm
[2018-04-22 14:50] VITALS: BP 168/88
[2018-04-24 10:18] VITALS: BP 169/91
== END 2018-04-22 13:57 | disposition home or self-care (01) ==
LOC: ER 15:34 → EDUNIT# 15:34 → 4TH 17:06 → UNDOADMOB 17:06 → 4TH 17:40 → UNDODISOB 04-22 14:50
PROVIDERS: ADMIT Family Medicine; ATTEND Family Medicine
DX: R07.9 Chest pain, unspecified (principal); I25.10 Atherosclerotic heart disease of native coronary artery without angina pectoris; I10 Essential (primary) hypertension; F17.210 Nicotine dependence, cigarettes, uncomplicated; I25.2 Old myocardial infarction; N40.0 Benign prostatic hyperplasia without lower urinary tract symptoms; K21.9 Gastro-esophageal reflux disease without esophagitis; Z95.1 Presence of aortocoronary bypass graft; Z95.5 Presence of coronary angioplasty implant and graft
CPT/HCPCS: 36415; 71045; 78452; 80053; 80061; 82150; 82550; 82553; 83690; 83735; 83874; 83880; 84484; 85025; 85379; 85610; 85730; 93005; 93017; 93041; 94640; 94760; 96374; G0378

== ENCOUNTER → 2019-03-19 | Outpatient (CLI) | payer MEDICARE, MEDICAID ==
[~2019-03-19] MED LIST changes: +ATOR40TA70 PO
--- NOTE | 2019-03-19 11:23 | Diagnostic Imaging Report ---
Indication: Injury to right shoulder one week ago. Time of exam: 11:07 AM Glenohumeral and acromioclavicular alignment are normal. Acromiohumeral space is normal. No fracture or dislocation is seen. Impression: No acute bony abnormality is detected. Dictated by: Dictated on workstation # [id number]
== END ==
LOC: RAD FS 10:57
PROVIDERS: ATTEND Family Medicine
DX: S49.91XA Unspecified injury of right shoulder and upper arm, initial encounter (principal)
CPT/HCPCS: 73030

== ENCOUNTER → 2019-09-18 | Outpatient (CLI) | payer MEDICARE, MEDICAID ==
[~2019-09-18] MED LIST changes: +AMLO5TAB9 PO; +ATOR80TA76 PO; +HYDR-3820 PO
--- NOTE | 2019-09-18 19:22 | Diagnostic Imaging Report ---
EXAMINATION: Magnetic resonance imaging of the right shoulder without contrast. DATE: September 18, 2019. COMPARISON: Right shoulder radiographs March 19, 2019. HISTORY: 73-year-old male, right shoulder pain. TECHNIQUE: Magnetic Resonance Imaging sequences were performed of the shoulder without contrast. FINDINGS: ROTATOR CUFF, LIGAMENTS, TENDONS, AND MUSCLES: There is a full thickness full width tear of the supraspinatus tendon occurring approximately 1.7 cm proximal to its humeral attachment site with a fluid-filled tendon gap measuring 3.3 cm. The torn and retracted tendon is at the level of the glenoid. There is mild infraspinatus tendinopathy. The subscapularis tendon is intact. The teres minor tendon is intact. There is mild fatty atrophy of the supraspinatus muscle. There is an area of benign focal fat within the posterior aspect of the deltoid muscle. LONG HEAD OF BICEPS: There is long head of biceps tendinopathy. The long head of biceps tendon is normally positioned in the bicipital groove. GLENOHUMERAL JOINT: The humeral head is well positioned relative to the glenoid. The labrum is grossly intact. There is no identified paralabral cyst. The articular cartilage is grossly intact. There is a small amount of glenohumeral joint fluid including fluid in the subscapularis recess which has a normal glenohumeral joint communication. There is no identified prominent synovitis or identified intra-articular body. ACROMIOCLAVICULAR JOINT: The acromioclavicular joint is normally aligned. The coracoclavicular and coracoacromial ligaments are intact. There are severe acromioclavicular degenerative changes with osteophytes extending approximately 3 mm below the joint margin. BONE: There is no os acromiale. There is no Hill-Sachs deformity. There is no acute fracture, bone contusion, or evidence of osteonecrosis. BURSAE AND SOFT TISSUES: There is fluid in the subacromial subdeltoid bursae consistent with the full-thickness rotator cuff tendon tear, bursitis, and/or recent injection. IMPRESSION: 1. Full thickness full width tear of the supraspinatus tendon occurring approximately 1.7 cm proximal to its humeral attachment with a fluid-filled tendon gap of 3.3 cm with a torn and retracted tendon at the level of the glenoid. Mild infraspinatus tendinopathy. Mild fatty atrophy of the supraspinatus muscle. 2. Severe acromioclavicular degenerative changes with 3 mm undersurface osteophytes. 3. Grossly intact labrum. Small glenohumeral joint effusion. 4. No acute fracture, bone contusion, or evidence of osteonecrosis. 5. Fluid in the subacromial subdeltoid bursa consistent with the full-thickness rotator cuff tendon tear, bursitis, and/or recent injection. Dictated by: Dictated on workstation # [id number]
== END ==
LOC: RAD 12:38
PROVIDERS: ATTEND Nurse Practitioner Family
DX: S46.811A Strain of other muscles, fascia and tendons at shoulder and upper arm level, right arm, initial encounter (principal); M19.011 Primary osteoarthritis, right shoulder; M25.411 Effusion, right shoulder; X58.XXXA Exposure to other specified factors, initial encounter
CPT/HCPCS: 73221

== ENCOUNTER 2020-11-22 09:12 | Emergency (ER) | payer MEDICARE, MEDICAID ==
[~2020-11-22] VITALS: Ht 182 cm; Wt 85.0 kg
[~2020-11-22 09:12] MED LIST changes: +ACHYD1T PO; +AMLO-250 PO; -AMLO5TAB9 PO; +ASPI-1238 PO; -ASPI-983 PO; -ENAL10TA; +ENAL10TA16; -HYDR-3820 PO; -ISM60TCR; +ISOS60TA63; -METO-387 PO; +MTP25TSR PO
[2020-11-22] MEDS ORDERED: ASPIRIN 81 MG CHEW (CHILDREN'S ASA) PO STA (09:30)
--- NOTE | 2020-11-22 09:34 | ED General ---
General Stated Complaint: CHEST PAIN; SOB Source of Information: Patient History of Present Illness Date Seen by Provider: Nov 22, 2020 Time Seen by Provider: 09:13 Initial Comments 74-year-old male presenting by wheelchair from [facility][1] clinic where he had presented for an appointment to see his primary care provider to get paperwork signed to get a hospital bed. He states that he was hoping to also have his primary care provider get oxygen form for home because he feels like he is not getting enough oxygen when he is walking and moving around. He was very winded and out of breath and having some chest pain and tightness when he had walked from the parking lot to the clinic. He states this happens with any exertion. He has seen his commutator operator in [place] and has had 2 separate cardiology doctors tell him that he has no other options for treatment as he has undergone bypass and has more than 10 stents in his heart. He has tingling and feeling of needles in his chest and pressure with exertion. With rest and belching it goes away. He feels that he needs medicine for COPD and something to get more oxygen when he is walking. Allergies and Home Medications Allergies Coded Allergies: Iodinated Contrast Media (Verified Allergy, Unknown, 01/20/09) Home Medications Albuterol Sulfate 1 Puff Puff, 2 PUFF IH Q4H PRN for SHORTNESS OF BREATH 1 PUFF = 90 MCG, Use with Spacer Prescribed by: DAYTON JEFFERSON on 11/22/20 1047 Amlodipine Besylate 5 Mg Tablet, 5 MG PO DAILY, (Reported) Aspirin 81 Mg Tablet.dr, 81 MG PO DAILY, (Reported) Atorvastatin Calcium 80 Mg Tablet, 80 MG PO HS Prescribed by: KIM ROJAS on 07/30/19 1131 Clopidogrel Bisulfate 75 Mg Tablet, 75 MG PO DAILY, (Reported) Docusate Sodium 100 Mg Capsule, 100 MG PO DAILY, (Reported) Furosemide 20 Mg Tablet, 20 MG PO DAILY Prescribed by: DAYTON JEFFERSON on 11/22/20 1047 Hydrocodone Bit/Acetaminophen 1 Each Tablet, 1 TAB PO Q6H PRN for PAIN-MODERATE, (Reported) Metoprolol Succinate 25 Mg Tab.er.24h, 25 MG PO DAILY Prescribed by: KIM ROJAS on 07/30/19 113 Potassium Chloride 10 Meq Tab.er.prt, 10 MEQ PO DAILY Prescribed by: DAYTON JEFFERSON on 11/22/20 1047 Patient Home Medication List Home Medication List Reviewed: Yes Review of Systems Review of Systems Constitutional: No chills, No diaphoresis, No dizziness, No fever EENTM: No ear discharge, No ear pain, No blurred vision, No epistaxis, No nose congestion Respiratory: No cough; dyspnea on exertion; No hemoptysis; short of breath; No stridor, No wheezing Cardiovascular: see HPI, chest pain; No edema Gastrointestinal: No nausea, No vomiting Genitourinary: No dysuria Musculoskeletal: no symptoms reported Skin: No rash Psychiatric/Neurological: Denies Headache Past Fsiejka-Zbgkcg-Lxcqxi Hx Patient Social History Smoking Status: Current Everyday Smoker Type Used: Cigarettes 2nd Hand Smoke Exposure: Yes Recent Hopitalizations: Yes (CHEST PAIN LEFT AMA) Immunizations Up To Date Tetanus Booster (TDap): More than 5yrs Date of Pneumonia Vaccine: Apr 18, 2017 Date of Influenza Vaccine: Jul 14, 2019 Seasonal Allergies Seasonal Allergies: No Past Medical History Surgeries: Yes (HEMORRHOIDECTOMY) CABG, Coronary Stent, Ear Surgery Respiratory: Yes Pneumonia, COPD Cardiac: Yes (5 WAY BYPASS, STENTS, BALLOONS.) Coronary Artery Disease, Heart Attack, Hypertension Neurological: Yes TIA Reproductive Disorders: No Genitourinary: Yes Benign Prostatic Hyperpl Gastrointestinal: Yes Gastroesophageal Reflux, Polyps, Hiatal Hernia Musculoskeletal: Yes Arthritis Endocrine: No HEENT: No Cancer: No Psychosocial: No Sleep Difficulties Integumentary: No (SCATTERED BRUISING/ON PLAVIX) Blood Disorders: No Adverse Reaction/Blood Tranf: No Family Medical History Heart Disease, CAD Over 55 Years Old Physical Exam Vital Signs Vital Signs - First Documented 11/22/20 09:46 Temp 36.4 Pulse 87 Resp 18 B/P (MAP) 128/77 (94) Pulse Ox 98 O2 Delivery Room Air Capillary Refill : Height, Weight, BMI Height: 6'0.00" Weight: 204lbs. 2.6oz. 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 Norm as Tested Skin: Normal Color, Warm/Dry Progress/Results/Core Measures Suspected Sepsis SIRS Temperature: Pulse: Respiratory Rate: Laboratory Tests 11/22/20 09:30: White Blood Count 6.1 Blood Pressure / Mean: Laboratory Tests 11/22/20 09:30: Creatinine 1.23, INR Comment 1.1, Platelet Count 218, Total Bilirubin 0.7 Results/Orders Lab Results Laboratory Tests Test 11/22/20 09:30 11/22/20 09:40 Range/Units White Blood Count 6.1 4.3-11.0 10^3/uL Red Blood Count 3.91 L 4.35-5.85 10^6/uL Hemoglobin 11.9 L 13.3-17.7 G/DL Hematocrit 36 L 40-54 % Mean Corpuscular Volume 93 80-99 FL Mean Corpuscular Hemoglobin 30 25-34 PG Mean Corpuscular Hemoglobin Concent 33 32-36 G/DL Red Cell Distribution Width 15.1 H 10.0-14.5 % Platelet Count 218 130-400 10^3/uL Mean Platelet Volume 10.8 H 7.4-10.4 FL Immature Granulocyte % (Auto) 0 % Neutrophils (%) (Auto) 69 42-75 % Lymphocytes (%) (Auto) 24 12-44 % Monocytes (%) (Auto) 5 0-12 % Eosinophils (%) (Auto) 1 0-10 % Basophils (%) (Auto) 1 0-10 % Neutrophils # (Auto) 4.2 1.8-7.8 X 10^3 Lymphocytes # (Auto) 1.4 1.0-4.0 X 10^3 Monocytes # (Auto) 0.3 0.0-1.0 X 10^3 Eosinophils # (Auto) 0.1 0.0-0.3 10^3/uL Basophils # (Auto) 0.0 0.0-0.1 10^3/uL Immature Granulocyte # (Auto) 0.0 0.0-0.1 10^3/uL Prothrombin Time 14.1 12.2-14.7 SEC INR Comment 1.1 0.8-1.4 Activated Partial Thromboplast Time 26 24-35 SEC Sodium Level 137 135-145 MMOL/L Potassium Level 4.1 3.6-5.0 MMOL/L Chloride Level 103 98-107 MMOL/L Carbon Dioxide Level 23 21-32 MMOL/L Anion Gap 11 5-14 MMOL/L Blood Urea Nitrogen 23 H 7-18 MG/DL Creatinine 1.23 0.60-1.30 MG/DL Estimat Glomerular Filtration Rate 58 BUN/Creatinine Ratio 19 Glucose Level 142 H 70-105 MG/DL Calcium Level 9.5 8.5-10.1 MG/DL Corrected Calcium 9.5 8.5-10.1 MG/DL Magnesium Level 1.9 1.6-2.4 MG/DL Total Bilirubin 0.7 0.1-1.0 MG/DL Aspartate Amino Transf (AST/SGOT) 12 5-34 U/L Alanine Aminotransferase (ALT/SGPT) 9 0-55 U/L Alkaline Phosphatase 126 40-136 U/L Troponin I < 0.30 <0.30 NG/ML Pro-B-Type Natriuretic Peptide 9789.0 H <75.0 PG/ML Total Protein 7.3 6.4-8.2 GM/DL Albumin 4.0 3.2-4.5 GM/DL Blood Gas Puncture Site LT WRIST Blood Gas Patient Temperature 36.1 Arterial Blood pH 7.46 H 7.37-7.43 Arterial Blood Partial Pressure CO2 29 L 35-45 MMHG Arterial Blood Partial Pressure O2 72 L 79-93 MMHG Arterial Blood HCO3 21 L 23-27 MMOL/L Arterial Blood Total CO2 21.5 21.0-31.0 MMOL/L Arterial Blood Oxygen Saturation 95 94-100 % Arterial Blood Base Excess -2.2 -2.5-2.5 MMOL/L Gavino Test NO Blood Gas Ventilator Setting NO Blood Gas Inspired Oxygen ROOM AIR My Orders Orders - DAYTON JEFFERSON MD Cbc With Automated Diff (11/22/20 09:16) Magnesium (11/22/20 09:16) Chest 1 View Ap/Pa Only (11/22/20 09:16) Ekg Tracing (11/22/20 09:16) Comprehensive Metabolic Panel (11/22/20 09:16) Protime With Inr (11/22/20 09:16) Partial Thromboplastin Time (11/22/20 09:16) O2 (11/22/20 09:16) Monitor-Rhythm Ecg Trace Only (11/22/20 09:16) Ed Iv/Invasive Line Start (11/22/20 09:16) Troponin I Fs (11/22/20 09:16) Probnp Fs (11/22/20 09:16) Arterial Blood Gas (11/22/20 09:28) Aspirin Chewable Tablet (Baby Aspirin Ch (11/22/20 09:30) Vital Signs/I&O 11/22/20 11/22/20 09:46 10:54 Temp 36.4 36.6 Pulse 87 84 Resp 18 18 B/P (MAP) 128/77 (94) 121/75 Pulse Ox 98 100 O2 Delivery Room Air Room Air Capillary Refill : Progress Note #1: Progress Note check ECG and labs with CXR. place on telemetry monitoring with his complaint of chest pain and shortness of breath. Patient is saturating 100% on room air with good waveform. His electrocardiogram shows sinus rhythm but he has an incomplete left bundle branch block with repolarization changes concerning for ischemia. His prior tracing from 2018 did not show these changes. Pt given 324 mg of Aspirin by mouth. Discussed pt with Dr. De Guzman as he was to see the pt at 930 this morning for office visit. His differential diagnosis would include an acute ST elevation [place], non-STEMI, COPD exacerbation, pulmonary embolism, pneumonia, lung cancer with difficulty breathing, anemia causing shortness of breath. Progress Note #2: Progress Note The chest x-ray demonstrates no cardiomegaly or definite infiltrate. He does h ave a new right pleural effusion in the base of his lung compared to previous imaging. His CBC does not show acute abnormality to account for his symptoms. His white count is normal at 6.1. He has mild anemia with a hemoglobin of 11.9. His chemistry is not showing any acute significant abnormality to account for his symptoms. His troponin came back at less than 0.3. His ABG on room air did not show significant hypoxia. His PO2 was 72. His proBNP was greatly elevated at 9789. Patient denies having any pain as he has been resting in the bed. Discussed the pleural effusion and negative troponin but he does have elevated findings for heart failure now. He refused admission or transfer to be evaluated by cardiology stating that he has been told there is no further treatments that can be done for his heart. He would really like to have inhaler or treatment for his breathing. Will prescribed an inhaler with spacer to see if the albuterol might help with his breathing. Due to the effusion and elevated BNP will try a short course of Lasix with potassium. Encouraged to follow-up with Dr. De Guzman. ECG Initial ECG Impression Date: Nov 22, 2020 Initial ECG Impression Time: 09:17 Initial ECG Rate: 87 Initial ECG Rhythm: Normal Sinus Initial ECG Comparisson: Changed (different from June 2019) Comment Sinus rhythm with a heart rate of 87 bpm. Incomplete left bundle branch block. OR interval 170 ms. QT interval 395 ms with a QTc interval of 476 ms. Repolarization changes for possible global ischemia. Appears different from June 2019 for the last EKG in the system. Diagnostic Imaging Diagonstic Imaging: Xray Plain Films/CT/US/NM/MRI: chest Comments [facility]. [place], [place] NAME: KEMAR CAMPA [facility] REC#: [id number] PT STATUS: REG ER : 1945 PHYSICIAN: DAYTON JEFFERSON MD ADMIT DATE: 11/22/20/ER FS Draft Date of Exam:11/22/20 CHEST 1 VIEW AP/PA ONLY Clinical indication: Patient with chest pain and shortness of breath. Exam: Portable chest x-ray upright view. Comparisons: Chest x-ray dated . Findings: There is interval development of a small right pleural effusion. There is development of mild right basilar atelectasis or infiltrate. Remainder of the lungs are stable and clear. Increased lung markings throughout both lungs again noted. Stable postoperative change to the chest consistent with CABG. Pulmonary vasculature and cardiac silhouettes within normal limits. There are degenerative spurs involving the thoracic spine. There is no pneumothorax. IMPRESSION: 1: There is interval development of a small right pleural effusion and mild right basilar atelectasis versus infiltrate. 2: The remainder of this exam shows no significant interval change compared to the prior study of comparison. Dictated on workstation # [id number] Dict: 11/22/20 0943 Trans: 11/22/20 0947 FADI [id number] Interpreted by: MARIA ALEJANDRA NIEVES MD Electronically signed by: Departure Impression Primary Impression: Atypical chest pain Additional Impressions: CAD (coronary artery disease) Qualified Codes: I25.118 - Atherosclerotic heart disease of [place] coronary artery with other forms of angina pectoris Pleural effusion on right COPD (chronic obstructive pulmonary disease) Qualified Codes: J44.9 - Chronic obstructive pulmonary disease, unspecified Heart failure Qualified Codes: I50.9 - Heart failure, unspecified Disposition: 01 HOME, SELF-CARE Condition: Improved Departure-Patient Inst. Decision time for Depature: 10:40 Referrals: BROOKS DE GUZMAN MD (PCP/Family) Primary Care Physician Patient Instructions: COPD Diet, Chest Pain, Adult ED, Heart Failure, Adult (DC), How to Use Your Metered Dose Inhaler (Adults), How to Use a Spacer, Pleural Effusion (DC) Add. Discharge Instructions: Take water pill with potassium pill to help with fluid on your lung and help with your breathing. Use inhaler with spacer to help with breathing from COPD. Call Dr. De Guzman and clinic to arrange for follow up from your missed appointment today Check back with cardiology and lung specialist about your breathing and recurrent chest pains with exertion. Scripts Albuterol Sulfate (PROAIR HFA) 1 Puff Puff 2 PUFF IH Q4H PRN for SHORTNESS OF BREATH for 30 Days, #1 INHALER 0 Refills 1 PUFF = 90 MCG, Use with Spacer Prov: DAYTON JEFFERSON MD 11/22/20 Potassium Chloride (Potassium Chloride) 10 Meq Tab.er.prt 10 MEQ PO DAILY for 7 Days, #7 TAB 0 Refills Prov: DAYTON JEFFERSON MD 11/22/20 Furosemide (Furosemide) 20 Mg Tablet 20 MG PO DAILY for pleural effusion for 7 Days, #7 TAB 0 Refills Prov: DAYTON JEFFERSON MD 11/22/20 DAYTON JEFFERSON MD Nov 22, 2020 09:34
[2020-11-22 09:39] LABS: BASOPHILS % (AUTO) 1 % (0-10); EOSINOPHILS # (AUTO) 0.1 10^3/uL (0.0-0.3); EOSINOPHILS % (AUTO) 1 % (0-10); HEMATOCRIT 36 % (40-54); HEMOGLOBIN 11.9 G/DL (13.3-17.7); LYMPHOCYTES # (AUTO) 1.4 X 10^3 (1.0-4.0); LYMPHOCYTES % (AUTO) 24 % (12-44); MEAN CORPUSCULAR HEMOGLOBIN 30 PG (25-34); MEAN CORPUSCULAR HGB CONC 33 G/DL (32-36); MEAN CORPUSCULAR VOLUME 93 FL (80-99); MEAN PLATELET VOLUME 10.8 FL (7.4-10.4); MONOCYTES # (AUTO) 0.3 X 10^3 (0.0-1.0); MONOCYTES % (AUTO) 5 % (0-12); NEUTROPHILS # (AUTO) 4.2 X 10^3 (1.8-7.8); NEUTROPHILS % (AUTO) 69 % (42-75); PLATELET COUNT 218 10^3/uL (130-400); WHITE BLOOD COUNT 6.1 10^3/uL (4.3-11.0)
--- NOTE | 2020-11-22 09:48 | Diagnostic Imaging Report ---
Clinical indication: Patient with chest pain and shortness of breath. Exam: Portable chest x-ray upright view. Comparisons: Chest x-ray dated . Findings: There is interval development of a small right pleural effusion. There is development of mild right basilar atelectasis or infiltrate. Remainder of the lungs are stable and clear. Increased lung markings throughout both lungs again noted. Stable postoperative change to the chest consistent with CABG. Pulmonary vasculature and cardiac silhouettes within normal limits. There are degenerative spurs involving the thoracic spine. There is no pneumothorax. IMPRESSION: 1: There is interval development of a small right pleural effusion and mild right basilar atelectasis versus infiltrate. 2: The remainder of this exam shows no significant interval change compared to the prior study of comparison. Dictated by: Dictated on workstation # [id number]
[2020-11-22 09:51] LABS: ABG BASE EXCESS -2.2 MMOL/L (-2.5-2.5); ABG OXYGEN SATURATION 95 % (94-100); ABG PCO2 29 MMHG (35-45); ABG PH 7.46 (7.37-7.43); ABG PO2 72 MMHG (79-93); ABG TCO2 21.5 MMOL/L (21.0-31.0)
[2020-11-22 09:52] LABS: ALLENS TEST NO; INSPIRED O2 ROOM AIR; PATIENT TEMP 36.1; VENTILATOR NO
[2020-11-22 09:53] LABS: INR 1.1 (0.8-1.4); PROTHROMBIN TIME PATIENT 14.1 SEC (12.2-14.7)
[2020-11-22 10:00] LABS: CREATININE SERUM 1.23 MG/DL (0.60-1.30); POTASSIUM 4.1 MMOL/L (3.6-5.0)
[2020-11-22 10:01] LABS: BILIRUBIN,TOTAL 0.7 MG/DL (0.1-1.0); CALCIUM 9.5 MG/DL (8.5-10.1); MAGNESIUM 1.9 MG/DL (1.6-2.4); TOTAL PROTEIN 7.3 GM/DL (6.4-8.2)
[2020-11-22] MEDS ORDERED: RT-ALBUINH IH (10:47)
[2020-11-22] MEDS ORDERED: POTA10TA36 PO (10:47)
[2020-11-22] MEDS ORDERED: FURO20TA4 PO (10:47)
[2020-11-22 10:54] VITALS: BP 121/75
== END 2020-11-22 10:55 | disposition home or self-care (01) ==
LOC: EDUNIT# 09:12 → ER FS 09:14
DX: R07.89 Other chest pain (principal); I25.10 Atherosclerotic heart disease of native coronary artery without angina pectoris; J90 Pleural effusion, not elsewhere classified; J44.9 Chronic obstructive pulmonary disease, unspecified; F41.9 Anxiety disorder, unspecified; I25.2 Old myocardial infarction; I11.0 Hypertensive heart disease with heart failure; F17.210 Nicotine dependence, cigarettes, uncomplicated; Z91.041 Radiographic dye allergy status; Z95.5 Presence of coronary angioplasty implant and graft; Z95.1 Presence of aortocoronary bypass graft; Z86.73 Personal history of transient ischemic attack (TIA), and cerebral infarction without residual deficits; Z82.49 Family history of ischemic heart disease and other diseases of the circulatory system; Z79.82 Long term (current) use of aspirin
CPT/HCPCS: 36415; 71045; 80053; 82805; 83735; 83880; 84484; 85025; 85610; 85730; 93005; 93041

== ENCOUNTER 2020-12-21 05:32 | Emergency (ER) | payer MEDICARE, MEDICAID ==
[~2020-12-21] VITALS: Ht 182 cm; Wt 85.0 kg
[~2020-12-21 05:32] MED LIST changes: +FURO20TA4 PO; +POTA10TA36 PO; +RT-ALBUINH IH
[2020-12-21] MEDS ORDERED: FUROSEMIDE 40 MG/4 ML INJ (LASIX) IVP STA (05:44)
[2020-12-21] MEDS ORDERED: LORazepam INJ 2 MG/ML (ATIVAN) VIAL IVP STA (05:44)
[2020-12-21] MEDS ORDERED: NITROGLYCERIN 0.4 MG SL TABS BTL 25'S SL PRN (05:45)
[2020-12-21] MEDS ORDERED: ASPIRIN 81 MG CHEW (CHILDREN'S ASA) PO ONE (05:45)
[2020-12-21] MEDS ORDERED: ONDANSETRON 4 MG/2 ML (SDV) Z0FRAN IVP STA (05:53)
[2020-12-21] MEDS ORDERED: morphine INJ 10 MG/ML 1ML (SYR OR VIAL) IVP STA (05:53)
--- NOTE | 2020-12-21 05:53 | ED General ---
General Stated Complaint: SHORT OF BREATHE Source of Information: Patient, Old Records (DAYTON JEFFERSON MD) History of Present Illness Date Seen by Provider: Dec 21, 2020 Time Seen by Provider: 05:32 Initial Comments 74 yo male presenting with complaints of rolling out of bed this morning and being short of breath with chest pain across his chest. He tried drinking some water and that did not help so he drank some pepsi but then he was having heartburn. He did not try taking any of his nitroglycerin but does take it regularly. He follows with cardiology out of [place]. He was seen by me on 11/22/2020 for shortness of breath and chest pains as he came to the clinic to see Dr. De Guzman. He states that he gets chest pain and short of breath with any exe rtion. He has been told that he has had everything done for his heart and that they can not do any further bypass or stents per patient report. He was showing signs of CHF at the visit on 11/22 and improved in ED visit with rest. He refused admit for his symptoms then and was released to follow up with clinic. This am he is having pain in his chest that he states starts on the left and radiates across. He is short of breath. (DAYTON JEFFERSON MD) Allergies and Home Medications Allergies Coded Allergies: Iodinated Contrast Media (Verified Allergy, Unknown, 01/20/09) Home Medications Albuterol Sulfate 1 Puff Puff, 2 PUFF IH Q4H PRN for SHORTNESS OF BREATH 1 PUFF = 90 MCG, Use with Spacer Prescribed by: DAYTON JEFFERSON on 11/22/20 1047 Amlodipine Besylate 5 Mg Tablet, 5 MG PO DAILY, (Reported) Aspirin 81 Mg Tablet.dr, 81 MG PO DAILY, (Reported) Atorvastatin Calcium 80 Mg Tablet, 80 MG PO HS Prescribed by: KIM ROJAS on 07/30/19 1131 Clopidogrel Bisulfate 75 Mg Tablet, 75 MG PO DAILY, (Reported) Docusate Sodium 100 Mg Capsule, 100 MG PO DAILY, (Reported) Furosemide 20 Mg Tablet, 20 MG PO DAILY Prescribed by: DAYTON JEFFERSON on 11/22/20 1047 Hydrocodone Bit/Acetaminophen 1 Each Tablet, 1 TAB PO Q6H PRN for PAIN-MODERATE, (Reported) Metoprolol Succinate 25 Mg Tab.er.24h, 25 MG PO DAILY Prescribed by: KIM ROJAS on 07/30/19 1131 Potassium Chloride 10 Meq Tab.er.prt, 10 MEQ PO DAILY Prescribed by: DAYTON JEFFERSON on 11/22/20 1047 Patient Home Medication List Home Medication List Reviewed: Yes (DAYTON JEFFERSON MD) Review of Systems Review of Systems Constitutional: No chills, No diaphoresis, No fever EENTM: no symptoms reported Respiratory: see HPI Cardiovascular: see HPI Gastrointestinal: no symptoms reported Genitourinary: no symptoms reported Musculoskeletal: no symptoms reported Skin: no symptoms reported Psychiatric/Neurological: Anxiety (DAYTON JEFFERSON MD) Past Suiszty-Zabdbm-Jpyawm Hx Past Med/Social Hx: Reviewed Nursing Past Med/Soc Hx (DAYTON JEFFERSON MD) Patient Social History Type Used: Cigarettes 2nd Hand Smoke Exposure: Yes Recent Hopitalizations: Yes (CHEST PAIN LEFT AMA) (DAYTON JEFFERSON MD) Immunizations Up To Date Tetanus Booster (TDap): More than 5yrs Date of Pneumonia Vaccine: Apr 18, 2017 Date of Influenza Vaccine: Jul 14, 2019 (DAYTON JEFFERSON MD) Seasonal Allergies Seasonal Allergies: No (DAYTON JEFFERSON MD) Past Medical History Surgeries: Yes (HEMORRHOIDECTOMY) CABG, Coronary Stent, Ear Surgery Respiratory: Yes Pneumonia, COPD Cardiac: Yes (5 WAY BYPASS, STENTS, BALLOONS.) Coronary Artery Disease, Heart Attack, Hypertension Neurological: Yes TIA Reproductive Disorders: No Genitourinary: Yes Benign Prostatic Hyperpl Gastrointestinal: Yes Gastroesophageal Reflux, Polyps, Hiatal Hernia Musculoskeletal: Yes Arthritis Endocrine: No HEENT: No Cancer: No Psychosocial: No Sleep Difficulties Integumentary: No (SCATTERED BRUISING/ON PLAVIX) Blood Disorders: No Adverse Reaction/Blood Tranf: No (DAYTON JEFFERSON MD) Family Medical History Heart Disease, CAD Over 55 Years Old (DAYTON JEFFERSON MD) Physical Exam Vital Signs Vital Signs - First Documented 12/21/20 05:49 Temp 35.9 Pulse 80 Resp 28 B/P (MAP) 132/87 (102) Pulse Ox 100 O2 Delivery Room Air (MILLARD,MERCEDES L DO) Vital Signs Capillary Refill : (DAYTON JEFFERSON MD) Height, Weight, BMI Height: 6'0.00" Weight: 204lbs. 2.6oz. [id number]; 25.00 BMI Method:Stated General Appearance: Anxious, Chronically ill, Moderate Distress HEENT: PERRL/EOMI Neck: Full Range of Motion, Supple Respiratory: Chest Non Tender, Accessory Muscle Use, Decreased Breath Sounds, Rales, Respiratory Distress Cardiovascular: Regular Rate, Rhythm, Normal Peripheral Pulses, Extra Beats Gastrointestinal: No Pulsatile Mass, Soft Extremity: Normal Capillary Refill, No Pedal Edema Neurologic/Psychiatric: Alert, Oriented x3 Skin: Warm/Dry, Pallor (DAYTON JEFFERSON MD) Progress/Results/Core Measures Suspected Sepsis SIRS Temperature: Pulse: Respiratory Rate: Laboratory Tests 12/21/20 05:38: White Blood Count 5.8 Blood Pressure / Mean: Laboratory Tests 12/21/20 05:38: Creatinine 1.24, INR Comment 1.1, Platelet Count 209, Total Bilirubin 0.5 (DAYTON JEFFERSON MD) Results/Orders Lab Results Laboratory Tests Test 12/21/20 05:38 12/21/20 07:38 Range/Units White Blood Count 5.8 4.3-11.0 10^3/uL Red Blood Count 4.34 L 4.35-5.85 10^6/uL Hemoglobin 13.0 L 13.3-17.7 G/DL Hematocrit 39 L 40-54 % Mean Corpuscular Volume 90 80-99 FL Mean Corpuscular Hemoglobin 30 25-34 PG Mean Corpuscular Hemoglobin Concent 33 32-36 G/DL Red Cell Distribution Width 15.0 H 10.0-14.5 % Platelet Count 209 130-400 10^3/uL Mean Platelet Volume 11.7 H 7.4-10.4 FL Immature Granulocyte % (Auto) 0 % Neutrophils (%) (Auto) 55 42-75 % Lymphocytes (%) (Auto) 36 12-44 % Monocytes (%) (Auto) 6 0-12 % Eosinophils (%) (Auto) 2 0-10 % Basophils (%) (Auto) 1 0-10 % Neutrophils # (Auto) 3.2 1.8-7.8 X 10^3 Lymphocytes # (Auto) 2.1 1.0-4.0 X 10^3 Monocytes # (Auto) 0.4 0.0-1.0 X 10^3 Eosinophils # (Auto) 0.1 0.0-0.3 10^3/uL Basophils # (Auto) 0.0 0.0-0.1 10^3/uL Immature Granulocyte # (Auto) 0.0 0.0-0.1 10^3/uL Neutrophils % (Manual) 57 % Lymphocytes % (Manual) 35 % Monocytes % (Manual) 6 % Eosinophils % (Manual) 0 % Basophils % (Manual) 1 % Band Neutrophils 1 % Poikilocytosis MODERATE Anisocytosis SLIGHT Prothrombin Time 14.0 12.2-14.7 SEC INR Comment 1.1 0.8-1.4 Activated Partial Thromboplast Time 28 24-35 SEC Sodium Level 138 135-145 MMOL/L Potassium Level 4.5 3.6-5.0 MMOL/L Chloride Level 103 98-107 MMOL/L Carbon Dioxide Level 20 L 21-32 MMOL/L Anion Gap 15 H 5-14 MMOL/L Blood Urea Nitrogen 25 H 7-18 MG/DL Creatinine 1.24 0.60-1.30 MG/DL Estimat Glomerular Filtration Rate 57 BUN/Creatinine Ratio 20 Glucose Level 116 H 70-105 MG/DL Calcium Level 9.8 8.5-10.1 MG/DL Corrected Calcium 9.6 8.5-10.1 MG/DL Magnesium Level 2.1 1.6-2.4 MG/DL Total Bilirubin 0.5 0.1-1.0 MG/DL Aspartate Amino Transf (AST/SGOT) 16 5-34 U/L Alanine Aminotransferase (ALT/SGPT) 14 0-55 U/L Alkaline Phosphatase 132 40-136 U/L Troponin I < 0.30 < 0.30 <0.30 NG/ML Pro-B-Type Natriuretic Peptide 03648.0 H <75.0 PG/ML Total Protein 7.8 6.4-8.2 GM/DL Albumin 4.2 3.2-4.5 GM/DL Lipase 18 8-78 U/L (MILLARD,MERCEDES L DO) My Orders Orders - MILLARDROHITHMERCEDES L DO Troponin I Fs (12/21/20 07:52) (MILLARD,MERCEDES L DO) Medications Given in ED Current Medications Medications Dose Ordered Sig/Hasmukh Route Start Time Stop Time Status Last Admin Dose Admin Aspirin 324 mg ONCE ONCE PO 12/21/20 05:45 12/21/20 05:46 DC 12/21/20 06:07 324 MG Nitroglycerin 0.4 mg UD PRN SL 12/21/20 05:45 12/21/20 06:08 0.4 MG (MERCEDES MILLARD DO) Vital Signs/I&O 12/21/20 12/21/20 05:49 05:49 Temp 35.9 Pulse 80 Resp 28 B/P (MAP) 132/87 (102) Pulse Ox 100 O2 Delivery Room Air Room Air (MERCEDES MILLARD DO) Vital Signs/I&O Capillary Refill : (DAYTON JEFFERSON MD) Progress Note #1: Progress Note Order aspirin 324 mg, ECG, CXR, Labs. Ntg for chest pain, morphine for pain, Lasix for short of breath and rales in bases with him having recent elevation of BNP to go with CHF exacerbation on top of COPD. Place on panel monitor for telemetry monitoring and pt initially sinus rhythm with frequent PVCs and rate 80s. Differential diagnosis includes acute coronary syndrome, COPD exacerbation, myocardial infarction, CHF exacerbation, pneumonia Progress Note #2: Time: 06:08 Progress Note As pt is resting in bed he complains of pain in chest still but that it is improving and he is becoming more talkative. He states he needs "something to help me get more air when I'm walking". He was saying the same thing on his ED visit 11/22. CXR shows right basilar pleural effusion and continued pulmonary vascular congestion. No acute infiltrate. ECG has artifact from him moving and talking but appears to show continued LBBB similar to previous tracing. Progress Note #3: Time: 06:26 Progress Note Pt more calm now with improved pain and able to repeat ECG without so much artifact on his tracing. He has Chronic LBBB. CBC does not show any acute significant changes and coags normal. Chemistry and Cardiac enzymes pending. Progress Note #4: Time: 06:51 Progress Note Chemistry with continued mild renal insufficiency and Cr 1.24. Initial Troponin negative and proBNP 12,553 so even higher than the 9,789 from 11/22. He is starting to have diuresis with the Lasix 80 mg IV dose given here in ED. Will recheck the troponin at 2 hours and if negative could see if he wants to continue to treat CHF as outpt or if he wants admit to be diuresed and manage his medical treatment for his heart failure. (DAYTON JEFFERSON MD) Progress Note : Time: 08:29 Progress Note Patient was offered admission however he declined. I will give him a refill to restart some Lasix along with some potassium as before. 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 Patient voices understanding. Patient stable and will be discharged home (MERCEDES MILLARD DO) ECG Initial ECG Impression Date: Dec 21, 2020 Initial ECG Impression Time: 05:46 Initial ECG Rate: 94 Initial ECG Rhythm: Normal Sinus Initial ECG Comparisson: Unchanged Comment Sinus rhythm with a heart rate of 94 bpm multifocal PVCs. Short ND interval of 51 ms. QT interval 473 ms with a QTc interval of 592 ms. Has a left bundle branch block. There is a lot of artifact on the tracing that the patient would not sit still or stop talking to be able to obtain a good tracing. Seems similar to tracing from Oct 2020. EKG : EKG Time: 06:23 Rate: 71 Rhythm: Normal Sinus ECG Comparisson: Unchanged Comment Normal sinus rhythm with a heart rate of 71 bpm. He has atrial premature complexes. Left bundle branch block. His ND interval is 175 ms. QT interval 438 ms with a QTc interval 476 ms. There is no acute ST elevation. This appears similar to prior tracings in the system. (DAYTON JEFFERSON MD) Diagnostic Imaging Diagonstic Imaging: Xray Plain Films/CT/US/NM/MRI: chest Comments NAME: KEMAR CAMPA [facility] REC#: [id number] PT STATUS: REG ER : 1945 PHYSICIAN: DAYTON JEFFERSON MD ADMIT DATE: 12/21/20/ER FS Draft Date of Exam:12/21/20 CHEST 1 VIEW AP/PA ONLY INDICATION: Chest pain. COMPARISON: 11/22/2020 FINDINGS: Single frontal radiographic view of the chest was obtained and shows normal cardiac silhouette and pulmonary vasculature. Sternotomy wires are noted. Lungs continue to show diffuse coarse interstitial opacities, stable compared to prior exam. There is blunting of the right lateral costophrenic angle, which may be on the basis of small effusion. There is no large effusion on the right. No pneumothorax is seen on either side. Osseous structures show no acute adverse interval change. IMPRESSION: 1. Probable small right basilar effusion. Dictated on workstation # [id number] Dict: 12/21/20 0606 Trans: 12/21/20 0608 FADI [id number] Interpreted by: ANGELICA MYRICK MD Electronically signed by: (DAYTON JEFFERSON MD) Transfer of Care Transfer of Care Time: 07:00 Care transferred to: Dr. Millard at shift change (DAYTON JEFFERSON MD) Departure Impression Primary Impression: Chest pain Qualified Codes: R07.9 - Chest pain, unspecified Additional Impressions: Dyspnea on minimal exertion CHF (congestive heart failure) Qualified Codes: I50.9 - Heart failure, unspecified Disposition: 01 HOME, SELF-CARE Condition: Stable Departure-Patient Inst. Referrals: BROOKS DE GUZMAN MD (PCP/Family) Primary Care Physician Patient Instructions: Heart Failure, Adult, Chest Pain (DC) Add. Discharge Instructions: These follow-up with your heart doctor within 1 to 2 weeks. Follow-up with Dr. De Guzman within a week. Scripts Potassium Chloride (Potassium Chloride) 10 Meq Tab.er.prt 10 MEQ PO DAILY for 7 Days, #7 TAB 0 Refills Prov: MARIANNA MILLARDR L DO 12/21/20 Furosemide (Furosemide) 20 Mg Tablet 20 MG PO DAILY for pleural effusion for 7 Days, #7 TAB 0 Refills Prov: MARIANNA MILLARDR L DO 12/21/20 DAYTON JEFFERSON MD Dec 21, 2020 05:53 MARIANNA MILLARDR Jennie DO Dec 21, 2020 08:31
--- NOTE | 2020-12-21 06:08 | Diagnostic Imaging Report ---
INDICATION: Chest pain. COMPARISON: 11/22/2020 FINDINGS: Single frontal radiographic view of the chest was obtained and shows normal cardiac silhouette and pulmonary vasculature. Sternotomy wires are noted. Lungs continue to show diffuse coarse interstitial opacities, stable compared to prior exam. There is blunting of the right lateral costophrenic angle, which may be on the basis of small effusion. There is no large effusion on the right. No pneumothorax is seen on either side. Osseous structures show no acute adverse interval change. IMPRESSION: 1. Probable small right basilar effusion. Dictated by: Dictated on workstation # [id number]
[2020-12-21 06:11] LABS: HEMATOCRIT 39 % (40-54); MEAN CORPUSCULAR HEMOGLOBIN 30 PG (25-34); MEAN CORPUSCULAR HGB CONC 33 G/DL (32-36); MEAN CORPUSCULAR VOLUME 90 FL (80-99); MEAN PLATELET VOLUME 11.7 FL (7.4-10.4); NEUTROPHILS % (AUTO) 55 % (42-75); PLATELET COUNT 209 10^3/uL (130-400); WHITE BLOOD COUNT 5.8 10^3/uL (4.3-11.0)
[2020-12-21 06:12] LABS: BASOPHILS % (AUTO) 1 % (0-10); EOSINOPHILS # (AUTO) 0.1 10^3/uL (0.0-0.3); EOSINOPHILS % (AUTO) 2 % (0-10); LYMPHOCYTES # (AUTO) 2.1 X 10^3 (1.0-4.0); LYMPHOCYTES % (AUTO) 36 % (12-44); MONOCYTES # (AUTO) 0.4 X 10^3 (0.0-1.0); MONOCYTES % (AUTO) 6 % (0-12); NEUTROPHILS # (AUTO) 3.2 X 10^3 (1.8-7.8)
[2020-12-21 06:18] LABS: INR 1.1 (0.8-1.4)
[2020-12-21 06:33] LABS: POTASSIUM 4.5 MMOL/L (3.6-5.0)
[2020-12-21 06:34] LABS: ALBUMIN 4.2 GM/DL (3.2-4.5); BILIRUBIN,TOTAL 0.5 MG/DL (0.1-1.0); CALCIUM 9.8 MG/DL (8.5-10.1); CREATININE SERUM 1.24 MG/DL (0.60-1.30); MAGNESIUM 2.1 MG/DL (1.6-2.4); TOTAL PROTEIN 7.8 GM/DL (6.4-8.2)
[2020-12-21 06:35] LABS: ANISOCYTOSIS SLIGHT; BAND NEUTROPHILS 1 %; BASOPHILS % (MANUAL) 1 %; EOSINOPHILS % (MANUAL) 0 %; LYMPHOCYTES % (MANUAL) 35 %; MONOCYTES % (MANUAL) 6 %; NEUTROPHILS % (MANUAL) 57 %; POIKILOCYTOSIS MODERATE
[2020-12-21 08:29] VITALS: BP 111/59
[2020-12-21] MEDS ORDERED: FURO20TA4 PO (08:30)
[2020-12-21] MEDS ORDERED: POTA10TA36 PO (08:30)
== END 2020-12-21 08:32 | disposition home or self-care (01) ==
LOC: EDUNIT# 05:32 → ER FS 05:35
DX: I11.0 Hypertensive heart disease with heart failure (principal); I50.9 Heart failure, unspecified; I25.2 Old myocardial infarction; I25.10 Atherosclerotic heart disease of native coronary artery without angina pectoris; J44.9 Chronic obstructive pulmonary disease, unspecified; Z87.01 Personal history of pneumonia (recurrent); Z86.73 Personal history of transient ischemic attack (TIA), and cerebral infarction without residual deficits; Z79.01 Long term (current) use of anticoagulants; Z95.1 Presence of aortocoronary bypass graft; Z95.5 Presence of coronary angioplasty implant and graft; Z79.82 Long term (current) use of aspirin; Z91.041 Radiographic dye allergy status
CPT/HCPCS: 36415; 71045; 80053; 83690; 83735; 83880; 84484; 85007; 85027; 85610; 85730; 93041

== ENCOUNTER → 2020-12-27 | Outpatient (CLI) | payer MEDICARE, MEDICAID ==
[2020-12-27 15:05] LABS: ALBUMIN 3.6 GM/DL (3.2-4.5); CALCIUM 9.1 MG/DL (8.5-10.1); CREATININE SERUM 1.25 MG/DL (0.60-1.30); POTASSIUM 4.4 MMOL/L (3.6-5.0); TOTAL PROTEIN 7.1 GM/DL (6.4-8.2)
[2020-12-27 15:06] LABS: HEMATOCRIT 37 % (40-54); HEMOGLOBIN 12.1 G/DL (13.3-17.7); MEAN CORPUSCULAR HEMOGLOBIN 30 PG (25-34); MEAN CORPUSCULAR HGB CONC 33 G/DL (32-36); MEAN CORPUSCULAR VOLUME 91 FL (80-99); NEUTROPHILS % (AUTO) 64 % (42-75); PLATELET COUNT 211 10^3/uL (130-400); WHITE BLOOD COUNT 5.5 10^3/uL (4.3-11.0)
[2020-12-27 15:07] LABS: BASOPHILS % (AUTO) 1 % (0-10); EOSINOPHILS # (AUTO) 0.1 10^3/uL (0.0-0.3); EOSINOPHILS % (AUTO) 1 % (0-10); LYMPHOCYTES # (AUTO) 1.4 X 10^3 (1.0-4.0); LYMPHOCYTES % (AUTO) 26 % (12-44); MONOCYTES # (AUTO) 0.4 X 10^3 (0.0-1.0); MONOCYTES % (AUTO) 7 % (0-12); NEUTROPHILS # (AUTO) 3.6 X 10^3 (1.8-7.8)
[2020-12-27 15:07] LABS: ABG PCO2 26 MMHG (35-45); ABG PO2 106 MMHG (79-93)
[2020-12-27 15:08] LABS: ABG BASE EXCESS -1.6 MMOL/L (-2.5-2.5); ABG OXYGEN SATURATION 99 % (94-100); ABG TCO2 21.1 MMOL/L (21.0-31.0); ALLENS TEST OK
[2020-12-27 15:09] LABS: INSPIRED O2 ROOM AIR; VENTILATOR NO
[2020-12-27 15:19] LABS: SMEAR SCAN COMMENT OK
--- NOTE | 2020-12-27 18:20 | Diagnostic Imaging Report ---
EXAMINATION: PA and lateral chest at 2:33 p.m. INDICATION: Shortness of breath. Four views of the chest were obtained. The heart size is within normal limits and the heart does seem somewhat less prominent than noted on the prior exam of 12/21/2020. The sternotomy wires and surgical clips noted previously are again evident and no different. The small right pleural effusion seen previously is also again visualized and does not appear to have changed significantly. In the interval since the previous study an even smaller left pleural effusion has developed. There are chronic pulmonary changes evident but there is no sign of failure or pneumonia. The mediastinum is not widened. The osseous structures are intact. IMPRESSION: 1. The small right pleural effusion noted previously is again evident and not significantly changed. However since the previous exam an even smaller left pleural effusion has developed. 2. There is no acute cardiopulmonary abnormality noted otherwise. 3. There is evidence of prior cardiac surgery. Dictated by: Dictated on workstation # [id number]
== END ==
LOC: LAB FS 14:03
PROVIDERS: ATTEND Family Medicine
DX: I10 Essential (primary) hypertension (principal); J44.9 Chronic obstructive pulmonary disease, unspecified
CPT/HCPCS: 36415; 71046; 80053; 82805; 83605; 85025